=== PATIENT | female | born 1970 | race Caucasian/White ===

== ENCOUNTER 2020-12-21 00:11 | Emergency (ER) | payer OTHER, SELFPAY ==
--- NOTE | 2020-12-21 00:23 | ED_ITS ---
HPI - Psych General Chief Complaint: Psychiatric Symptoms <DICK Crook - Last Filed: 12/21/20 01:49> Stated Complaint: SI/SEC 12 <DICK Crook - Last Filed: 12/21/20 01:49> Time Seen by Provider: 12/21/20 00:22 <DICK Crook - Last Filed: 12/21/20 01:49> Source: patient <DICK Crook Last Filed: 12/21/20 01:49> Mode of arrival: EMS <DICK Crook Last Filed: 12/21/20 01:49> Limitations: no limitations <DICK Crook Last Filed: 12/21/20 01:49> History of Present Illness HPI Narrative: 50-year-old female past medical history significant for anxiety, depression, 6 polysubstance use, IV drug use, hepatitis-C, alcohol dependency presents to the emergency department with EMS, and police on a Section 12 for increasing depression, suicidal ideation, and alcohol abuse. Patient states she has been having problems at home, she is taking care of a sick family member who is currently dying. She also states that she is very upset seeing that her son has been frequently drinking and she is afraid he is going to sock turner to be an alcoholic just like her. She states she has been struggling for the past 5 months, ever since she got taken off of the Adderall. She states she got taken off because she admitted to her prescriber that she was abusing it. Since stopping Adderall she has been using heroin, and cocaine. She also states that she has been drinking daily, 1 pt of vodka per day. She states she would like to get help, she wants to stop using drugs, and she wants to stop drinking. She lives at home with her sick family member, and 2 sons. She has an outpatient therapist and psychiatrist. She denies visual, tactile and auditory hallucinations. She has been in detox and has had multiple psych admissions. She denies pain. Denies chest pain, shortness of breath, fevers, chills, nausea, vomiting, abdominal pain, weakness, headache, dizziness. <DICK Crook Last Filed: 12/21/20 01:49> MD complaint: suicidal ideation, feels depressed, anxiety, substance abuse and alcohol abuse <DICK Crook Last Filed: 12/21/20 01:49> Onset (ago): month(s) (5) <DICK Crook Last Filed: 12/21/20 01:49> Duration: constant <DICK Crook Last Filed: 12/21/20 01:49> History of same: Yes <DICK Crook - Last Filed: 12/21/20 01:49> Relieving factors: none <DICK Crook Last Filed: 12/21/20 01:49> Exacerbating factors: none <DICK Crook Last Filed: 12/21/20 01:49> Context: recent alcohol abuse, recent drug abuse and significant life stressor (family member is very sick and dying, 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 ) <DICK Escamilla - Last Filed: 12/21/20 01:49> Associated psychiatric symptoms: depression, suicidal ideation and homicidal ideation <DICK Crook Last Filed: 12/21/20 01:49> Associated symptoms: denies other symptoms <DICK Crook - Last Filed: 12/21/20 01:49> Treatments prior to arrival: none <DICK Crook Last Filed: 12/21/20 01:49> If self harm: admits thoughts of self harm and has plan (cut wrist, bleed out ) <DICK Crook Last Filed: 12/21/20 01:49> Related Data Home Medications: Home Medications Medication Instructions Recorded Confirmed amlodipine 5 mg tablet 5 mg PO DAILY 08/21/20 12/21/20 clonazepam 1 mg tablet 100f2 mg PO TID 08/21/20 12/21/20 ergocalciferol (vitamin D2) 1,250 1,250 mcg PO QWEEK 08/21/20 12/21/20 mcg (50,000 unit) capsule lamotrigine 150 mg tablet 150 mg PO BID 08/21/20 12/21/20 levalbuterol tartrate 45 45 mcg INHALATION DAILY 08/21/20 12/21/20 mcg/actuation aerosol inhaler multivitamin 1 tab PO DAILY 08/21/20 12/21/20 aripiprazole 5 mg tablet 1 tab PO DAILY 12/21/20 12/21/20 venlafaxine 75 mg capsule,extended 1 tab PO BID 12/21/20 12/21/20 release 24 hr <DICK Crook - Last Filed: 12/21/20 01:49> Allergies/Adverse Reactions: Allergies Allergy/AdvReac Type Severity Reaction Status Date / Time No Known Allergies Allergy Unverified 08/21/20 16:06 <DICK Crook Last Filed: 12/21/20 01:49> Review of Systems Review of Systems: Constitutional : No Fever, No Chills ENT/Mouth : No Ear Pain, No Nasal Congestion, No sore throat Eyes: No Eye Pain, No Swelling, No Redness Cardiovascular : No Chest Pain, No SOB Respiratory : No Cough, No Sputum, No Dyspnea Gastrointestinal : No Nausea, No Vomiting, No Diarrhea, No Hematochezia, No Melena Genitourinary : No Dysuria, No Urinary Frequency, No Hematuria Musculoskeletal : No Myalgias Skin : No Skin Lesions, No rash Neuro : No Weakness, No Numbness, No Paresthesias, No Dizziness, No Headache Psych : positive Anxiety, positive Depression, positive SI/HI All other systems reviewed and are negative <DICK Crook Last Filed: 12/21/20 01:49> [facility] Past Medical History Attestation statement: The following information was validated with the patient. <DICK Stauffer - Last Filed: 12/21/20 01:49> Source: old records reviewed and nursing notes reviewed <DICK Crook Last Filed: 12/21/20 01:49> Social History Social History: Social History Alcohol intake: current Alcohol intake frequency: 3 or more drinks per day Alcohol type: hard liquor Patient Tobacco Use Status: Current everyday Tobacco user Use of substances other than those prescribed or required for medical reasons: Yes Substance Use Type: Crack/Cocaine and Heroin Substance Use Frequency: Recent Binge Substance Use Frequency Other:: one month ago heroin and cocaine used Last Used Substance: Days (ago) Any prior treatment program specific to substance use: Yes Advance Directives: No Advance Directives Information Provided: No Patient : No <DICK Crook - Last Filed: 12/21/20 01:49> Physical Exam Vital Signs: Vital Signs: Last Vital Signs Temp 97.9 F 12/21/20 00:28 Pulse 105 H 12/21/20 07:02 Resp 18 12/21/20 07:02 BP 154/95 H 12/21/20 07:02 Pulse Ox 96 12/21/20 00:28 Body Mass Index 33.6 <DICK Crook - Last Filed: 12/21/20 01:49> Vital Signs: Last Vital Signs Temp 97.9 F 12/21/20 00:28 Pulse 105 H 12/21/20 07:02 Resp 18 12/21/20 07:02 BP 154/95 H 12/21/20 07:02 Pulse Ox 96 12/21/20 00:28 Body Mass Index 33.6 <DICK Estevez - Last Filed: 12/21/20 09:19> Appearance: Alert.? Oriented X3.? No acute distress.? Eyes: Pupils equal, round and reactive to light.? ENT: Pharynx normal.? Neck: Normal inspection.? Neck supple.? CVS: Normal heart rate and rhythm.? Pulses normal.? Respiratory: No respiratory distress.? Breath sounds normal.? Abdomen: Soft and nontender.? Skin: Skin warm and dry.? Normal skin color.? Normal skin turgor.? Extremities: No lower extremity edema.? Neuro: Oriented X 3.? No motor deficit.? No sensory deficit. CN 2-12 intact <DICK Crook - Last Filed: 12/21/20 01:49> Course Reevaluation(s) Reevaluation #1: Labs show no acute infection, no anemia transaminases are noted to be elevated, likely secondary to alcohol use disorder, no other acute electrolyte abnormalities. Urine free of infection, urine negative. U tox positive for fentanyl. Ethanol 192. Patient is COVID negative. At this time patient will be placed in physician observation (0142) to allow more time to be evaluated by N she is currently on a Section 12 for suicidal ideation with plan to cut wrist. Patient is calm and cooperative. At this time patients vital signs are stable. Lungs are clear to auscultation,RRR, abdomen soft nontender nondistended. No focal neuro deficits. Pending [facility] evaluation Sign-out will be given to Dr. Mary. 25 mg of librium will be given to prevent seizing <DICK Crook - Last Filed: 12/21/20 01:49> Time: 01:42 <DICK Crook - Last Filed: 12/21/20 01:49> Reevaluation #2: Physician observation completed. Patient is slightly tachycardic this morning to 105, no complaints overnight. Was evaluated by N this morning, they recommended detox however patient reports she has an appointment with her doctors on Tuesday which she does not want to miss. States she would like to go to detox after her appointments. Patient is safe for discharge at this time. Labs reviewed, chronic transaminitis noted. Denies SI/HI <DICK Estevez - Last Filed: 12/21/20 09:19> Time: 09:16 <DICK Estevez - Last Filed: 12/21/20 09:19> MDM - Psych MDM Narrative Medical decision making narrative: 0022 50-year-old female past medical history significant for anxiety, depression, 6 polysubstance use, IVDA, hepatitis-C, alcohol dependency w/ hx of alcohol withdraw seizures presents to the emergency department with EMS, and police on a Section 12 for increasing depression, suicidal ideation with plan to cut wrist, and alcohol abuse X5 months worse this week. Patient admits to heroin use, cocaine use. She drinks 1 pt of vodka per day. She would like to detox from alcohol, and drugs. She states she would like to stay, and really needs help. Patient denies pain or discomfort. Upon physical examination patient is tearful, alert and oriented x3 appropriate, able to follow commands. S1 and S2 appreciated free murmurs. Lungs are clear to auscultation. Abdomen soft nontender nondistended. No focal neuro deficits. Normal strength to upper and lower extremities. Steady gait no ataxia. Plan at this time is to obtain basic labs, drug abuse, COVID, ethanol, magnesium, urine , urine clean catch. <DICK Crook - Last Filed: 12/21/20 01:49> Lab Data Result diagrams: : 12/21/20 00:46 12/21/20 00:46 <DICK Crook - Last Filed: 12/21/20 01:49> Labs: Lab Results 12/21/20 12/21/20 12/21/20 Range/Units 00:38 00:46 00:46 WBC 8.8 (4.8-10.8) X10*3/uL RBC 4.51 (4.20-5.50) X10*6/uL Hgb 15.5 (12.0-16.0) g/dl Hct 44.9 (37.0-47.0) % MCV 99.6 H (80.0-98.0) fL MCH 34.4 H (27.0-33.0) pg MCHC 34.5 (31.0-35.0) g/dl RDW 14.1 (11.0-16.0) % Plt Count 318 (160-400) X10*3/uL MPV 10.0 (9.4-12.3) fL Immature Gran % (Auto) 0.2 (0.0-0.4) % Neut % (Auto) 63.0 (45-73) % Lymph % (Auto) 27.4 (20-40) % [place] % (Auto) 7.3 (2-11) % Eos % (Auto) 1.5 (0-4) % Baso % (Auto) 0.6 (0-2) % Lymph # (Auto) 2.4 (1.2-4.9) X10*3/uL [place] # (Auto) 0.6 (0.1-1.2) X10*3/uL Eos # (Auto) 0.1 (0.0-0.4) X10*3/uL Baso # (Auto) 0.1 (0.0-0.2) X10*3/uL Abs Immat Gran (auto) 0.02 (0.00-0.03) X10*3/uL Absolute Neuts (auto) 5.5 (2.0-8.3) x10*3/uL Absolute Nucleated RBC 0.000 (0.0-0.012) X10*3/uL Nucleated RBC % (auto) 0.0 (0.0-0.2) /100WBC Sodium 146 H (135-145) mmol/L Potassium 4.0 (3.3-5.1) mmol/L Chloride 109 H (96-108) mmol/L Carbon Dioxide 22 (22-29) mmol/L Anion Gap 19 (12-20) BUN 6 L (9-16) mg/dL Creatinine 0.86 (0.5-1.4) mg/dL Estim Creat Clear Calc 61.8 Estimated GFR > 60 Random Glucose 112 (60-115) mg/dL Calcium 10.0 (8.4-10.2) mg/dL Magnesium 2.1 (1.6-2.6) mg/dL Total Bilirubin 0.2 (0.0-1.0) mg/dL AST 48 H (5-31) U/L ALT 84 H (0-31) U/L Alkaline Phosphatase 143 H (39-117) U/L Total Protein 8.4 H (6.5-8.0) g/dL Albumin 4.8 (3.5-5.0) g/dL Urine Color Urine Appearance Urine pH (5.0-8.0) Ur Specific [place] (1.005-1.025) Urine Protein (NEG-TRACE) MG/DL Urine Glucose (UA) (NEG) MG/DL Urine Ketones (NEG) MG/DL Urine Blood (NEG) Urine Nitrite (NEG) Ur Leukocyte Esterase (NEG) Urine RBC (0) /HPF Urine WBC (0-4) /HPF Ur Squamous Epith Cells /LPF Urine Bacteria /LPF Urine Test (NEGATIVE) Urine Opiates Screen (Not Detect) Urine Fentanyl Screen (Not Detect) Ur Barbiturates Screen (Not Detect) Ur Phencyclidine Scrn (Not Detect) Ur Amphetamines Screen (Not Detect) U Benzodiazepines Scrn (Not Detect) Urine Cocaine Screen (Not Detect) U Marijuana (THC) Screen (Not Detect) Ethyl Alcohol mg/dL COVID-19 (KADEN) Negative (Negative) COVID-19 Clin Com See Note 12/21/20 12/21/20 12/21/20 Range/Units 00:46 00:46 00:46 WBC (4.8-10.8) X10*3/uL RBC (4.20-5.50) X10*6/uL Hgb (12.0-16.0) g/dl Hct (37.0-47.0) % MCV (80.0-98.0) fL MCH (27.0-33.0) pg MCHC (31.0-35.0) g/dl RDW (11.0-16.0) % Plt Count (160-400) X10*3/uL MPV (9.4-12.3) fL Immature Gran % (Auto) (0.0-0.4) % Neut % (Auto) (45-73) % Lymph % (Auto) (20-40) % [place] % (Auto) (2-11) % Eos % (Auto) (0-4) % Baso % (Auto) (0-2) % Lymph # (Auto) (1.2-4.9) X10*3/uL [place] # (Auto) (0.1-1.2) X10*3/uL Eos # (Auto) (0.0-0.4) X10*3/uL Baso # (Auto) (0.0-0.2) X10*3/uL Abs Immat Gran (auto) (0.00-0.03) X10*3/uL Absolute Neuts (auto) (2.0-8.3) x10*3/uL Absolute Nucleated RBC (0.0-0.012) X10*3/uL Nucleated RBC % (auto) (0.0-0.2) /100WBC Sodium (135-145) mmol/L Potassium (3.3-5.1) mmol/L Chloride (96-108) mmol/L Carbon Dioxide (22-29) mmol/L Anion Gap (12-20) BUN (9-16) mg/dL Creatinine (0.5-1.4) mg/dL Estim Creat Clear Calc Estimated GFR Random Glucose (60-115) mg/dL Calcium (8.4-10.2) mg/dL Magnesium (1.6-2.6) mg/dL Total Bilirubin (0.0-1.0) mg/dL AST (5-31) U/L ALT (0-31) U/L Alkaline Phosphatase (39-117) U/L Total Protein (6.5-8.0) g/dL Albumin (3.5-5.0) g/dL Urine Color YELLOW Urine Appearance CLEAR Urine pH 6.0 (5.0-8.0) Ur Specific [place] <= 1.005 (1.005-1.025) Urine Protein NEG (NEG-TRACE) MG/DL Urine Glucose (UA) NEG (NEG) MG/DL Urine Ketones NEG (NEG) MG/DL Urine Blood NEG (NEG) Urine Nitrite NEG (NEG) Ur Leukocyte Esterase NEG (NEG) Urine RBC 0-2 (0) /HPF Urine WBC 0-2 (0-4) /HPF Ur Squamous Epith Cells TRACE /LPF Urine Bacteria TRACE /LPF Urine Test NEGATIVE (NEGATIVE) Urine Opiates Screen (Not Detect) Urine Fentanyl Screen (Not Detect) Ur Barbiturates Screen (Not Detect) Ur Phencyclidine Scrn (Not Detect) Ur Amphetamines Screen (Not Detect) U Benzodiazepines Scrn (Not Detect) Urine Cocaine Screen (Not Detect) U Marijuana (THC) Screen (Not Detect) Ethyl Alcohol 192 mg/dL COVID-19 (KADEN) (Negative) COVID-19 Clin Com 12/21/20 Range/Units 00:47 WBC (4.8-10.8) X10*3/uL RBC (4.20-5.50) X10*6/uL Hgb (12.0-16.0) g/dl Hct (37.0-47.0) % MCV (80.0-98.0) fL MCH (27.0-33.0) pg MCHC (31.0-35.0) g/dl RDW (11.0-16.0) % Plt Count (160-400) X10*3/uL MPV (9.4-12.3) fL Immature Gran % (Auto) (0.0-0.4) % Neut % (Auto) (45-73) % Lymph % (Auto) (20-40) % [place] % (Auto) (2-11) % Eos % (Auto) (0-4) % Baso % (Auto) (0-2) % Lymph # (Auto) (1.2-4.9) X10*3/uL [place] # (Auto) (0.1-1.2) X10*3/uL Eos # (Auto) (0.0-0.4) X10*3/uL Baso # (Auto) (0.0-0.2) X10*3/uL Abs Immat Gran (auto) (0.00-0.03) X10*3/uL Absolute Neuts (auto) (2.0-8.3) x10*3/uL Absolute Nucleated RBC (0.0-0.012) X10*3/uL Nucleated RBC % (auto) (0.0-0.2) /100WBC Sodium (135-145) mmol/L Potassium (3.3-5.1) mmol/L Chloride (96-108) mmol/L Carbon Dioxide (22-29) mmol/L Anion Gap (12-20) BUN (9-16) mg/dL Creatinine (0.5-1.4) mg/dL Estim Creat Clear Calc Estimated GFR Random Glucose (60-115) mg/dL Calcium (8.4-10.2) mg/dL Magnesium (1.6-2.6) mg/dL Total Bilirubin (0.0-1.0) mg/dL AST (5-31) U/L ALT (0-31) U/L Alkaline Phosphatase (39-117) U/L Total Protein (6.5-8.0) g/dL Albumin (3.5-5.0) g/dL Urine Color Urine Appearance Urine pH (5.0-8.0) Ur Specific [place] (1.005-1.025) Urine Protein (NEG-TRACE) MG/DL Urine Glucose (UA) (NEG) MG/DL Urine Ketones (NEG) MG/DL Urine Blood (NEG) Urine Nitrite (NEG) Ur Leukocyte Esterase (NEG) Urine RBC (0) /HPF Urine WBC (0-4) /HPF Ur Squamous Epith Cells /LPF Urine Bacteria /LPF Urine Test (NEGATIVE) Urine Opiates Screen Not Detected (Not Detect) Urine Fentanyl Screen POSITIVE H (Not Detect) Ur Barbiturates Screen Not Detected (Not Detect) Ur Phencyclidine Scrn Not Detected (Not Detect) Ur Amphetamines Screen Not Detected (Not Detect) U Benzodiazepines Scrn Not Detected (Not Detect) Urine Cocaine Screen Not Detected (Not Detect) U Marijuana (THC) Screen Not Detected (Not Detect) Ethyl Alcohol mg/dL COVID-19 (KADEN) (Negative) COVID-19 Clin Com <DICK Crook - Last Filed: 12/21/20 01:49> Lab Results 12/21/20 12/21/20 12/21/20 Range/Units 00:38 00:46 00:46 WBC 8.8 (4.8-10.8) X10*3/uL RBC 4.51 (4.20-5.50) X10*6/uL Hgb 15.5 (12.0-16.0) g/dl Hct 44.9 (37.0-47.0) % MCV 99.6 H (80.0-98.0) fL MCH 34.4 H (27.0-33.0) pg MCHC 34.5 (31.0-35.0) g/dl RDW 14.1 (11.0-16.0) % Plt Count 318 (160-400) X10*3/uL MPV 10.0 (9.4-12.3) fL Immature Gran % (Auto) 0.2 (0.0-0.4) % Neut % (Auto) 63.0 (45-73) % Lymph % (Auto) 27.4 (20-40) % [place] % (Auto) 7.3 (2-11) % Eos % (Auto) 1.5 (0-4) % Baso % (Auto) 0.6 (0-2) % Lymph # (Auto) 2.4 (1.2-4.9) X10*3/uL [place] # (Auto) 0.6 (0.1-1.2) X10*3/uL Eos # (Auto) 0.1 (0.0-0.4) X10*3/uL Baso # (Auto) 0.1 (0.0-0.2) X10*3/uL Abs Immat Gran (auto) 0.02 (0.00-0.03) X10*3/uL Absolute Neuts (auto) 5.5 (2.0-8.3) x10*3/uL Absolute Nucleated RBC 0.000 (0.0-0.012) X10*3/uL Nucleated RBC % (auto) 0.0 (0.0-0.2) /100WBC Sodium 146 H (135-145) mmol/L Potassium 4.0 (3.3-5.1) mmol/L Chloride 109 H (96-108) mmol/L Carbon Dioxide 22 (22-29) mmol/L Anion Gap 19 (12-20) BUN 6 L (9-16) mg/dL Creatinine 0.86 (0.5-1.4) mg/dL Estim Creat Clear Calc 61.8 Estimated GFR > 60 Random Glucose 112 (60-115) mg/dL Calcium 10.0 (8.4-10.2) mg/dL Magnesium 2.1 (1.6-2.6) mg/dL Total Bilirubin 0.2 (0.0-1.0) mg/dL AST 48 H (5-31) U/L ALT 84 H (0-31) U/L Alkaline Phosphatase 143 H (39-117) U/L Total Protein 8.4 H (6.5-8.0) g/dL Albumin 4.8 (3.5-5.0) g/dL Urine Color Urine Appearance Urine pH (5.0-8.0) Ur Specific [place] (1.005-1.025) Urine Protein (NEG-TRACE) MG/DL Urine Glucose (UA) (NEG) MG/DL Urine Ketones (NEG) MG/DL Urine Blood (NEG) Urine Nitrite (NEG) Ur Leukocyte Esterase (NEG) Urine RBC (0) /HPF Urine WBC (0-4) /HPF Ur Squamous Epith Cells /LPF Urine Bacteria /LPF Urine Test (NEGATIVE) Urine Opiates Screen (Not Detect) Urine Fentanyl Screen (Not Detect) Ur Barbiturates Screen (Not Detect) Ur Phencyclidine Scrn (Not Detect) Ur Amphetamines Screen (Not Detect) U Benzodiazepines Scrn (Not Detect) Urine Cocaine Screen (Not Detect) U Marijuana (THC) Screen (Not Detect) Ethyl Alcohol mg/dL COVID-19 ([facility]ADEN) Negative (Negative) COVID-19 Clin Com See Note 12/21/20 12/21/20 12/21/20 Range/Units 00:46 00:46 00:46 WBC (4.8-10.8) X10*3/uL RBC (4.20-5.50) X10*6/uL Hgb (12.0-16.0) g/dl Hct (37.0-47.0) % MCV (80.0-98.0) fL MCH (27.0-33.0) pg MCHC (31.0-35.0) g/dl RDW (11.0-16.0) % Plt Count (160-400) X10*3/uL MPV (9.4-12.3) fL Immature Gran % (Auto) (0.0-0.4) % Neut % (Auto) (45-73) % Lymph % (Auto) (20-40) % [place] % (Auto) (2-11) % Eos % (Auto) (0-4) % Baso % (Auto) (0-2) % Lymph # (Auto) (1.2-4.9) X10*3/uL [place] # (Auto) (0.1-1.2) X10*3/uL Eos # (Auto) (0.0-0.4) X10*3/uL Baso # (Auto) (0.0-0.2) X10*3/uL Abs Immat Gran (auto) (0.00-0.03) X10*3/uL Absolute Neuts (auto) (2.0-8.3) x10*3/uL Absolute Nucleated RBC (0.0-0.012) X10*3/uL Nucleated RBC % (auto) (0.0-0.2) /100WBC Sodium (135-145) mmol/L Potassium (3.3-5.1) mmol/L Chloride (96-108) mmol/L Carbon Dioxide (22-29) mmol/L Anion Gap (12-20) BUN (9-16) mg/dL Creatinine (0.5-1.4) mg/dL Estim Creat Clear Calc Estimated GFR Random Glucose (60-115) mg/dL Calcium (8.4-10.2) mg/dL Magnesium (1.6-2.6) mg/dL Total Bilirubin (0.0-1.0) mg/dL AST (5-31) U/L ALT (0-31) U/L Alkaline Phosphatase (39-117) U/L Total Protein (6.5-8.0) g/dL Albumin (3.5-5.0) g/dL Urine Color YELLOW Urine Appearance CLEAR Urine pH 6.0 (5.0-8.0) Ur Specific [place] <= 1.005 (1.005-1.025) Urine Protein NEG (NEG-TRACE) MG/DL Urine Glucose (UA) NEG (NEG) MG/DL Urine Ketones NEG (NEG) MG/DL Urine Blood NEG (NEG) Urine Nitrite NEG (NEG) Ur Leukocyte Esterase NEG (NEG) Urine RBC 0-2 (0) /HPF Urine WBC 0-2 (0-4) /HPF Ur Squamous Epith Cells TRACE /LPF Urine Bacteria TRACE /LPF Urine Test NEGATIVE (NEGATIVE) Urine Opiates Screen (Not Detect) Urine Fentanyl Screen (Not Detect) Ur Barbiturates Screen (Not Detect) Ur Phencyclidine Scrn (Not Detect) Ur Amphetamines Screen (Not Detect) U Benzodiazepines Scrn (Not Detect) Urine Cocaine Screen (Not Detect) U Marijuana (THC) Screen (Not Detect) Ethyl Alcohol 192 mg/dL COVID-19 ([facility]ADEN) (Negative) COVID-19 Clin Com 12/21/20 Range/Units 00:47 WBC (4.8-10.8) X10*3/uL RBC (4.20-5.50) X10*6/uL Hgb (12.0-16.0) g/dl Hct (37.0-47.0) % MCV (80.0-98.0) fL MCH (27.0-33.0) pg MCHC (31.0-35.0) g/dl RDW (11.0-16.0) % Plt Count (160-400) X10*3/uL MPV (9.4-12.3) fL Immature Gran % (Auto) (0.0-0.4) % Neut % (Auto) (45-73) % Lymph % (Auto) (20-40) % [place] % (Auto) (2-11) % Eos % (Auto) (0-4) % Baso % (Auto) (0-2) % Lymph # (Auto) (1.2-4.9) X10*3/uL [place] # (Auto) (0.1-1.2) X10*3/uL Eos # (Auto) (0.0-0.4) X10*3/uL Baso # (Auto) (0.0-0.2) X10*3/uL Abs Immat Gran (auto) (0.00-0.03) X10*3/uL Absolute Neuts (auto) (2.0-8.3) x10*3/uL Absolute Nucleated RBC (0.0-0.012) X10*3/uL Nucleated RBC % (auto) (0.0-0.2) /100WBC Sodium (135-145) mmol/L Potassium (3.3-5.1) mmol/L Chloride (96-108) mmol/L Carbon Dioxide (22-29) mmol/L Anion Gap (12-20) BUN (9-16) mg/dL Creatinine (0.5-1.4) mg/dL Estim Creat Clear Calc Estimated GFR Random Glucose (60-115) mg/dL Calcium (8.4-10.2) mg/dL Magnesium (1.6-2.6) mg/dL Total Bilirubin (0.0-1.0) mg/dL AST (5-31) U/L ALT (0-31) U/L Alkaline Phosphatase (39-117) U/L Total Protein (6.5-8.0) g/dL Albumin (3.5-5.0) g/dL Urine Color Urine Appearance Urine pH (5.0-8.0) Ur Specific [place] (1.005-1.025) Urine Protein (NEG-TRACE) MG/DL Urine Glucose (UA) (NEG) MG/DL Urine Ketones (NEG) MG/DL Urine Blood (NEG) Urine Nitrite (NEG) Ur Leukocyte Esterase (NEG) Urine RBC (0) /HPF Urine WBC (0-4) /HPF Ur Squamous Epith Cells /LPF Urine Bacteria /LPF Urine Test (NEGATIVE) Urine Opiates Screen Not Detected (Not Detect) Urine Fentanyl Screen POSITIVE H (Not Detect) Ur Barbiturates Screen Not Detected (Not Detect) Ur Phencyclidine Scrn Not Detected (Not Detect) Ur Amphetamines Screen Not Detected (Not Detect) U Benzodiazepines Scrn Not Detected (Not Detect) Urine Cocaine Screen Not Detected (Not Detect) U Marijuana (THC) Screen Not Detected (Not Detect) Ethyl Alcohol mg/dL COVID-19 ([facility]) (Negative) COVID-19 Clin Com <DICK Estevez - Last Filed: 12/21/20 09:19> Discharge Plan Discharge Clinical Impression: Depression, Suicidal ideation, Acute anxiety, Polysubstance abuse, Alcohol abuse <DICK Crook - Last Filed: 12/21/20 01:49> Patient Disposition: Still a Patient <DICK Crook - Last Filed: 12/21/20 01:49> Prescriptions: No Action venlafaxine 75 mg capsule,extended release 24hr 1 tab PO BID RF: 0 aripiprazole 5 mg tablet 1 tab PO DAILY RF: 0 ergocalciferol (vitamin D2) 1,250 mcg (50,000 unit) capsule 1,250 mcg PO QWEEK RF: 0 clonazepam 1 mg tablet 100f2 mg PO TID RF: 0 lamotrigine 150 mg tablet 150 mg PO BID RF: 0 levalbuterol tartrate 45 mcg/actuation HFA aerosol inhaler 45 mcg inhalation DAILY RF: 0 amlodipine 5 mg tablet 5 mg PO DAILY RF: 0 multivitamin Tablet 1 tab PO DAILY RF: 0 <DICK Crook Last Filed: 12/21/20 01:49>
[2020-12-21 00:28] VITALS: BP 130/80; BP 140/93; PULSE 90; PULSE 99; RESP 18; TEMP 36.6; O2SAT 100; O2SAT 96; BMI 33.6
[2020-12-21 00:54] LABS: MANUAL DIFF FLAG NO
[2020-12-21 01:00] LABS: Basophils Absolute Auto 0.1 X10*3/uL (0.0-0.2); Basophils Percent Auto 0.6 % (0-2); Eosinophils Absolute Auto 0.1 X10*3/uL (0.0-0.4); Eosinophils Percent Auto 1.5 % (0-4); Hematocrit 44.9 % (37.0-47.0); Hemoglobin 15.5 g/dl (12.0-16.0); Imm Gran Abs Auto 0.02 X10*3/uL (0.00-0.03); Imm Gran Pct Auto 0.2 % (0.0-0.4); Lymphocytes Absolute Auto 2.4 X10*3/uL (1.2-4.9); Lymphocytes Percent Auto 27.4 % (20-40); Mean Corpuscular HGB Conc 34.5 g/dl (31.0-35.0); Mean Corpuscular Hemoglobin 34.4 pg (27.0-33.0); Mean Corpuscular Volume 99.6 fL (80.0-98.0); Monocytes Absolute Auto 0.6 X10*3/uL (0.1-1.2); Monocytes Percent Auto 7.3 % (2-11); Neutrophils Absolute Auto 5.5 x10*3/uL (2.0-8.3); Platelet Count 318 X10*3/uL (160-400); Red Blood Count 4.51 X10*6/uL (4.20-5.50); Red Cell Distribution Width 14.1 % (11.0-16.0); White Blood Count 8.8 X10*3/uL (4.8-10.8)
[2020-12-21 01:09] LABS: Amphetamine Screen Urine Not Detected (Not Detect); Barbiturates, Urine Not Detected (Not Detect); Benzodiazepines Screen Urine Not Detected (Not Detect); Cannabinoid Screen Urine Not Detected (Not Detect); Cocaine Screen Urine Not Detected (Not Detect); Fentanyl, urine POSITIVE (Not Detect); Opiate Screen Urine Not Detected (Not Detect); Phencyclidine Screen Urine Not Detected (Not Detect)
[2020-12-21 01:13] LABS: COVID-19 Test Negative (Negative); IDNOW Serial# 9DD0AD1C
[2020-12-21 01:30] LABS: Ethanol 192 mg/dL
[2020-12-21 01:32] LABS: Alanine Aminotransferase 84 U/L (0-31); Albumin Level 4.8 g/dL (3.5-5.0); Alkaline Phosphatase 143 U/L (39-117); Anion Gap 19 (12-20); Aspartate Amino Transferase 48 U/L (5-31); Bilirubin Total 0.2 mg/dL (0.0-1.0); Blood Urea Nitrogen 6 mg/dL (9-16); Carbon Dioxide 22 mmol/L (22-29); Chloride 109 mmol/L (96-108); Creatinine Clr Calc Pharmacy 61.8; Estimated Glomerular Filt Rate > 60; Glucose Random 112 mg/dL (60-115); Magnesium 2.1 mg/dL (1.6-2.6); Sodium 146 mmol/L (135-145); Total Protein 8.4 g/dL (6.5-8.0)
[2020-12-21 01:33] LABS: Appearance Urine CLEAR; Color Urine YELLOW; Glucose Urine UA NEG (NEG); Leukocyte Esterase Urine NEG (NEG); Nitrite Urine NEG (NEG); Specific Gravity - Urine <= 1.005 (1.005-1.025); Urine Blood NEG (NEG); Urine Ketones NEG (NEG); Urine Protein NEG (NEG-TRACE)
[2020-12-21 01:36] LABS: UPreg QC Valid YES; Urine Pregnancy NEGATIVE (NEGATIVE)
[2020-12-21 02:16] LABS: Bacteria Urine TRACE /LPF; RBC Urine 0-2 /HPF (0); Squamous Epithelial Cell Urine TRACE /LPF; WBC Urine 0-2 /HPF (0-4)
[2020-12-21] MEDS: chlordiazePOXIDE HCl 5 MG CAPSULE 25 MG PO (03:41)
[2020-12-21 07:02] VITALS: BP 154/95; PULSE 105; RESP 18
--- NOTE | 2020-12-21 07:42 | PC.NURSE ---
report taken from [facility] pt sitting in [facility], some reported anxiety. assessed for ciwa, provider aware. vss. appears to have some light tremors, able to rest and feel comfortable watching tv, per pt. [facility]ctm.
--- NOTE | 2020-12-21 09:08 | PHA.MEDREC ---
Pharmacy Consult ? Medication Reconciliation Pharmacy has completed the medication reconciliation.
== END 2020-12-21 09:29 | disposition home or self-care (01) ==
PROVIDERS: Physician Assistant; Emergency Provider Internal Medicine
DX: F32.A Depression, unspecified (principal); R45.851 Suicidal ideations; F41.9 Anxiety disorder, unspecified; F19.10 Other psychoactive substance abuse, uncomplicated; F10.20 Alcohol dependence, uncomplicated; Z79.899 Other long term (current) drug therapy; Z20.822 Contact with and (suspected) exposure to COVID-19
CPT/HCPCS: 36415; 80053; 80307; 81001; 81025; 82077; 83735; 85025; 87635; 99284

== ENCOUNTER 2021-10-10 19:17 | Emergency (ER) | payer OTHER, SELFPAY ==
[2021-10-10 20:40] VITALS: BP 124/90; PULSE 90; RESP 20; TEMP 36.6; O2SAT 96; BMI 32.9
[2021-10-10 20:59] LABS: COVID-19 Test Positive (Negative)
== END 2021-10-10 21:12 | disposition left against medical advice (07) ==
PROVIDERS: Emergency Provider Emergency Medicine; PCP Internal Medicine
DX: U07.1 COVID-19 (principal)
CPT/HCPCS: 87635; 99281; 99283

== ENCOUNTER → 2022-07-16 14:45 | Outpatient (BNVA) | payer OTHER, SELFPAY | PROVIDERS: PCP Internal Medicine; Visit Provider Physician Assistant ==

== ENCOUNTER → 2023-03-21 12:45 | Outpatient (BNVA) | payer OTHER, SELFPAY | PROVIDERS: PCP Internal Medicine; Visit Provider Surgery ==

== ENCOUNTER 2023-04-11 08:38 | Outpatient (AMB) | payer OTHER, SELFPAY ==
--- NOTE | 2023-04-11 11:36 | A.OFFVIS_ITS ---
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 Allergies No Known Allergies Allergy (Verified 04/11/23 11:38) Medication List - Last Reconciled 04/11/23 by José Miguel Guaman MD albuterol sulfate 90 mcg/actuation (ProAir HFA) 2 puffs inhalation Q6H PRN atorvastatin 20 mg PO DAILY cholecalciferol (vitamin D3) 25 mcg PO DAILY clonazepam 1 mg PO TID fluticasone propionate 50 mcg/actuation (Flonase Allergy Relief) 2 sprays intranasal DAILY folic acid 1 mg PO DAILY furosemide 20 mg PO DAILY lamotrigine 200 mg PO DAILY loratadine (Claritin) 10 mg PO DAILY nicotine 1 patch topical DAILY venlafaxine ER (Effexor XR) 150 mg PO DAILY vitamin B complex caps PO DAILY HPI 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 HPI Details Start time: 10.40am, End time: 11.40am ?I spent 50 minutes speaking with the patient on the phone plus an additional 10 minutes reviewing and updating records for a total of 60 minutes HPI Comments History of Present Illness Details Previous weight loss: self diets Wakes up: 8am, Sleeps: 12am Breakfast: 8.30am x3-4/wk (cereal, banana) Lunch: skips Dinner: 9pm (pasta, meat) Snacks: 3-4 snacks between breakfast and dinner (candy, popcorn), one after dinner Exercise: has a home stationary bike Fluids: Coffee: 6 cups per day with cream and sugar, tea/soda/juice/ETOH: none PFSH Medical History (Updated 04/11/23 @ 11:43 by José Miguel Guaman MD) ADHD PTSD (post-traumatic stress disorder) Prediabetes Hyperlipidemia Morbid obesity Surgical History (Updated 07/16/22 @ 15:17 by SIMBA Pike) Hx of tubal ligation History of ear surgery Family History (Updated 07/16/22 @ 15:18 by SIMBA Pike) Mother Hypertension Diabetes High cholesterol Father No problems noted. Brother Colon cancer Hypertension High cholesterol Diabetes Son No problems noted. Son No problems noted. Social History (Updated 07/16/22 @ 15:17 by SIMBA Pike) Alcohol intake: former Patient Tobacco Use Status: Current everyday Tobacco user Cigarette Packs Per Day: 1 Substance Use Type: Crack/Cocaine and Heroin Assessment & Plan Assessment & Plan (1) Morbid obesity: Code(s): E66.01 - Morbid (severe) obesity due to excess calories Plan: 1.? Plan for lap sleeve gastrectomy. If diaphragmatic or ventral hernias are present at time of surgery, these will be repaired laparoscopically as well. 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 I emphasized the importance of close follow-up, adherence to instructions and good communication. 2. Nutritional counseling. Start with 2 CELEBRATE REBUILD protein (buy at [facility] [employer]) shakes (HALF scoop EACH in 8oz low fat unsweetened almond milk each) at 9am-11am and 12pm-2pm, 1 protein bar (CELEBRATE protein bars, buy at [facility] [employer] [facility]) at 3pm-5pm, dinner at 6pm (8 forks of protein and 8 forks of salad/vegetables), another protein bar after dinner at 8pm-10pm. If hungry, please do another Celebrate shake with HALF scoop in 8oz almond milk at 10pm- 12am. So you do 3 protein shakes, 2 protein bars and one meal per day. Meal to include lean meat (beef, fish, pork, turkey, chicken), or croatian yogurt, or egg whites, or beans with a salad with olive oil and fruits (berries, pears, apples, kiwi). Avoid salt, breads, potatoes, rice, pasta, desserts. 3. Each shake would be drunk slowly, like coffee in a period of 2 hours. 4. Cut each bar in 4 pieces and eat each piece in 30min ?to make each bar last 2 hours. 5. I emphasized the importance of measuring accurately the food portion and measure it when serving the food in plate 6. The meal portions include 8 full-size forks of meat and 8 full-size forks of salad. You always eat the meat portion but you can replace up to 4 forks for salad/vegetables with rice, potatoes or pasta, or a fruit ?if you like. The less you do it the better weight loss will be. 7. One full-size fork is what it can be scooped on the fork without falling aside and not what can be bit with the fork. Use regular forks like those you find in a typical restaurant. 8.? Please send me weight measurements as soon as possible and then once a week. Always include your diet and exercise plan. 9. Start stationary bike at a resistance level of 4.0 Increase level by 1.0 every 3 min to a max level of 10.0. Stay at this level for 3 min and then return to level 4.0 and repeat same steps until 300 calories are burned. Velocity target is 12mph. Goal is to burn 2000 calories per week on exercise 10. The best choice would be to purchase a stationary bike, elliptical or treadmill at home that can track calories. Let me know if you do so I can give you an exercise plan. 11.?Unless you are on menopause, it is important of avoiding and for at least 18 months postoperatively and has been discussed at the infosession. 12. Goal is to lose at least 1.5-2lbs per week 13. Goal to lose 10% of your weight before surgery, which is about 17lbs. Ultimate weight goal:159lbs before surgery 14. Please follow the diet plan exactly without any change. If you don't like something about the plan or you feel hungry you need to communicate with me so I can help you revise the plan. You should not change the plan yourself. Orders: Orders Hemoglobin A1c Today E66.01 - Morbid (severe) obesity due to excess calories, E78.5 - Hyperlipidemia, unspecified, R73.03 - Prediabetes H Pylori Breath Test Today E66.01 - Morbid (severe) obesity due to excess calories, E78.5 - Hyperlipidemia, unspecified, R73.03 - Prediabetes Complete Blood Count Auto Diff Today E66.01 - Morbid (severe) obesity due to excess calories, E78.5 - Hyperlipidemia, unspecified, R73.03 - Prediabetes Lipid Panel Today E66.01 - Morbid (severe) obesity due to excess calories, E78.5 - Hyperlipidemia, unspecified, R73.03 - Prediabetes Comprehensive Met. Panel Today E66.01 - Morbid (severe) obesity due to excess calories, E78.5 - Hyperlipidemia, unspecified, R73.03 - Prediabetes Vitamin B12 and Folate Today E66.01 - Morbid (severe) obesity due to excess calories, E78.5 - Hyperlipidemia, unspecified, R73.03 - Prediabetes Zinc Today E66.01 - Morbid (severe) obesity due to excess calories, E78.5 - Hyperlipidemia, unspecified, R73.03 - Prediabetes TSH reflex Free T4 Today E66.01 - Morbid (severe) obesity due to excess calories, E78.5 - Hyperlipidemia, unspecified, R73.03 - Prediabetes Vitamin D 25-OH Total Today E66.01 - Morbid (severe) obesity due to excess calories, E78.5 - Hyperlipidemia, unspecified, R73.03 - Prediabetes Insulin Today E66.01 - Morbid (severe) obesity due to excess calories, E78.5 - Hyperlipidemia, unspecified, R73.03 - Prediabetes IRON PROFILE Today E66.01 - Morbid (severe) obesity due to excess calories, E78.5 - Hyperlipidemia, unspecified, R73.03 - Prediabetes C Reactive Protein Today E66.01 - Morbid (severe) obesity due to excess calories, E78.5 - Hyperlipidemia, unspecified, R73.03 - Prediabetes Vitamin B1 Today E66.01 - Morbid (severe) obesity due to excess calories, E78.5 - Hyperlipidemia, unspecified, R73.03 - Prediabetes Vitamin A Today E66.01 - Morbid (severe) obesity due to excess calories, E78.5 - Hyperlipidemia, unspecified, R73.03 - Prediabetes Ferritin Today E66.01 - Morbid (severe) obesity due to excess calories, E78.5 - Hyperlipidemia, unspecified, R73.03 - Prediabetes US abdomen comp w elastography Today E66.01 - Morbid (severe) obesity due to excess calories, E78.5 - Hyperlipidemia, unspecified, R73.03 - Prediabetes XR chest 2V Today E66.01 - Morbid (severe) obesity due to excess calories, E78.5 - Hyperlipidemia, unspecified, R73.03 - Prediabetes ECG 12 lead EKG Today E66.01 - Morbid (severe) obesity due to excess calories, E78.5 - Hyperlipidemia, unspecified, R73.03 - Prediabetes FL upper GI w air Today E66.01 - Morbid (severe) obesity due to excess calories, E78.5 - Hyperlipidemia, unspecified, R73.03 - Prediabetes Referrals Behavioral Health Referral E66.01 - Morbid (severe) obesity due to excess calories, E78.5 - Hyperlipidemia, unspecified, R73.03 - Prediabetes Nutrition/Dietitian Referral E66.01 - Morbid (severe) obesity due to excess calories, E78.5 - Hyperlipidemia, unspecified, R73.03 - Prediabetes Telehealth Telehealth Location of provider rendering services: practice address Location of patient: address on file Patient Identification confirmed using: Name, : Yes Telehealth method: voice only Patient verbally consented to treatment: Yes Patient verbally consented to billing insurance company: Yes Patient informed of any privacy concerns related to visit: Yes Minutes spent on Phone/Video with Pt.: 60 Coding Level of Care Code Tele New Pt Level 4 (08940) Diagnoses Morbid obesity E66.01 Time Spent (min) 60
[2023-04-11 11:37] VITALS: BMI 42.4
== END 2023-04-11 11:52 | disposition home or self-care (01) ==
LOC: HO.HBS 08:38
PROVIDERS: PCP Internal Medicine; Visit Provider Surgery
DX: E66.01 Morbid (severe) obesity due to excess calories (principal); Z68.41 Body mass index [BMI] 40.0-44.9, adult
CPT/HCPCS: 99443

== ENCOUNTER → 2023-04-11 08:38 | Outpatient (BNVA) | payer OTHER, SELFPAY | PROVIDERS: PCP Internal Medicine; Visit Provider Surgery ==

== ENCOUNTER 2023-05-13 14:45 | Outpatient (REF) | payer OTHER, SELFPAY ==
--- NOTE | ~2023-05-13 | XR_ITS ---
EXAMINATION: XR HAND, BILATERAL XR KNEE, BILATERAL CLINICAL INFORMATION: Bilateral hand and knee pain. COMPARISON: None available. TECHNIQUE: 3 views of each hand. 3 views of each knee. FINDINGS: RIGHT HAND: Chronic deformity or central erosion of the 4th distal phalanx at the PIP joint which is narrowed. Mild narrowing of the 2nd DIP joint as well as the 3rd and 4th PIP joints. No definite active erosion or suspicious soft tissue calcification. LEFT HAND: Narrowing with central erosions and marginal osteophytes at the 3rd DIP joint suggesting chronic erosive osteoarthritis. Similar although less prominent findings of the 2nd DIP joint. Mild narrowing of the 4th and 5th DIP joints. No definite active erosions. RIGHT KNEE: No joint space narrowing. No joint effusion. No fracture or significant degenerative findings. LEFT KNEE: No joint space narrowing. No joint effusion. No fracture or significant degenerative findings. XR/XR hand RT min 3V IMPRESSION: Right Hand: Arthritic changes as described with possible moderate chronic erosive osteoarthritis of the 4th DIP joint. Left Hand: Arthritic changes as described, [id number] at the 2nd and 3rd DIP joints with probable chronic erosive osteoarthritis of the 3rd DIP joint. Right Knee: Normal. Left Knee: Normal.
--- NOTE | ~2023-05-13 | XR_ITS ---
EXAMINATION: XR HAND, BILATERAL XR KNEE, BILATERAL CLINICAL INFORMATION: Bilateral hand and knee pain. COMPARISON: None available. TECHNIQUE: 3 views of each hand. 3 views of each knee. FINDINGS: RIGHT HAND: Chronic deformity or central erosion of the 4th distal phalanx at the PIP joint which is narrowed. Mild narrowing of the 2nd DIP joint as well as the 3rd and 4th PIP joints. No definite active erosion or suspicious soft tissue calcification. LEFT HAND: Narrowing with central erosions and marginal osteophytes at the 3rd DIP joint suggesting chronic erosive osteoarthritis. Similar although less prominent findings of the 2nd DIP joint. Mild narrowing of the 4th and 5th DIP joints. No definite active erosions. RIGHT KNEE: No joint space narrowing. No joint effusion. No fracture or significant degenerative findings. LEFT KNEE: No joint space narrowing. No joint effusion. No fracture or significant degenerative findings. XR/XR hand LT min 3V IMPRESSION: Right Hand: Arthritic changes as described with possible moderate chronic erosive osteoarthritis of the 4th DIP joint. Left Hand: Arthritic changes as described, [id number] at the 2nd and 3rd DIP joints with probable chronic erosive osteoarthritis of the 3rd DIP joint. Right Knee: Normal. Left Knee: Normal.
--- NOTE | ~2023-05-13 | XR_ITS ---
EXAMINATION: XR HAND, BILATERAL XR KNEE, BILATERAL CLINICAL INFORMATION: Bilateral hand and knee pain. COMPARISON: None available. TECHNIQUE: 3 views of each hand. 3 views of each knee. FINDINGS: RIGHT HAND: Chronic deformity or central erosion of the 4th distal phalanx at the PIP joint which is narrowed. Mild narrowing of the 2nd DIP joint as well as the 3rd and 4th PIP joints. No definite active erosion or suspicious soft tissue calcification. LEFT HAND: Narrowing with central erosions and marginal osteophytes at the 3rd DIP joint suggesting chronic erosive osteoarthritis. Similar although less prominent findings of the 2nd DIP joint. Mild narrowing of the 4th and 5th DIP joints. No definite active erosions. RIGHT KNEE: No joint space narrowing. No joint effusion. No fracture or significant degenerative findings. LEFT KNEE: No joint space narrowing. No joint effusion. No fracture or significant degenerative findings. XR/XR knee LT 3V IMPRESSION: Right Hand: Arthritic changes as described with possible moderate chronic erosive osteoarthritis of the 4th DIP joint. Left Hand: Arthritic changes as described, [id number] at the 2nd and 3rd DIP joints with probable chronic erosive osteoarthritis of the 3rd DIP joint. Right Knee: Normal. Left Knee: Normal.
--- NOTE | ~2023-05-13 | XR_ITS ---
EXAMINATION: XR HAND, BILATERAL XR KNEE, BILATERAL CLINICAL INFORMATION: Bilateral hand and knee pain. COMPARISON: None available. TECHNIQUE: 3 views of each hand. 3 views of each knee. FINDINGS: RIGHT HAND: Chronic deformity or central erosion of the 4th distal phalanx at the PIP joint which is narrowed. Mild narrowing of the 2nd DIP joint as well as the 3rd and 4th PIP joints. No definite active erosion or suspicious soft tissue calcification. LEFT HAND: Narrowing with central erosions and marginal osteophytes at the 3rd DIP joint suggesting chronic erosive osteoarthritis. Similar although less prominent findings of the 2nd DIP joint. Mild narrowing of the 4th and 5th DIP joints. No definite active erosions. RIGHT KNEE: No joint space narrowing. No joint effusion. No fracture or significant degenerative findings. LEFT KNEE: No joint space narrowing. No joint effusion. No fracture or significant degenerative findings. XR/XR knee RT 3V IMPRESSION: Right Hand: Arthritic changes as described with possible moderate chronic erosive osteoarthritis of the 4th DIP joint. Left Hand: Arthritic changes as described, [id number] at the 2nd and 3rd DIP joints with probable chronic erosive osteoarthritis of the 3rd DIP joint. Right Knee: Normal. Left Knee: Normal.
[2023-05-13 16:19] LABS: MANUAL DIFF FLAG NO
[2023-05-13 17:21] LABS: Basophils Absolute Auto 0.1 X10*3/uL (0.0-0.2); Basophils Percent Auto 0.7 % (0-2); Eosinophils Absolute Auto 0.3 X10*3/uL (0.0-0.4); Eosinophils Percent Auto 2.9 % (0-4); Hematocrit 42.2 % (37.0-47.0); Hemoglobin 14.1 g/dl (12.0-16.0); Imm Gran Abs Auto 0.03 X10*3/uL (0.00-0.03); Imm Gran Pct Auto 0.3 % (0.0-0.4); Lymphocytes Absolute Auto 2.5 X10*3/uL (1.2-4.9); Lymphocytes Percent Auto 27.9 % (20-40); Mean Corpuscular HGB Conc 33.4 g/dl (31.0-35.0); Mean Corpuscular Volume 98.8 fL (80.0-98.0); Mean Platelet Volume 10.3 fL (9.4-12.3); Monocytes Absolute Auto 0.5 X10*3/uL (0.1-1.2); Monocytes Percent Auto 5.9 % (2-11); Neutrophils Absolute Auto 5.5 x10*3/uL (2.0-8.3); Neutrophils Percent Auto 62.3 % (45-73); Platelet Count 347 X10*3/uL (160-400); Red Blood Count 4.27 X10*6/uL (4.20-5.50); Red Cell Distribution Width 13.8 % (11.0-16.0); White Blood Count 8.8 X10*3/uL (4.8-10.8)
[2023-05-13 17:29] LABS: Estimated Average Glucose 123 mg/dL; Hemoglobin A1c % 5.9 % (<6.0)
[2023-05-13 17:53] LABS: Rheumatoid Factor < 13.0 IU/mL (<15.0)
[2023-05-13 18:01] LABS: Uric Acid 5.5 mg/dL (2.4-5.7)
[2023-05-13 18:06] LABS: Alanine Aminotransferase 35 U/L (0-31); Albumin Level 4.8 g/dL (3.5-5.0); Alkaline Phosphatase 170 U/L (39-117); Anion Gap 16 (12-20); Aspartate Amino Transferase 22 U/L (5-31); Bilirubin Total 0.4 mg/dL (0.0-1.0); Blood Urea Nitrogen 13 mg/dL (9-16); C Reactive Protein 1.66 mg/dL (< or = 0.50); Carbon Dioxide 26 mmol/L (22-29); Chloride 103 mmol/L (96-108); Cholesterol 206 mg/dL (<200); Estimated Glomerular Filt Rate > 60; Glucose Random 92 mg/dL (60-115); HDL Cholesterol 47 mg/dL (>40); Iron 117 mcg/dL (30-160); LDL Cholesterol Calculated 113 mg/dL (<100); Percent Iron Saturation 34 % (15-50); Potassium 3.6 mmol/L (3.3-5.1); Sodium 141 mmol/L (135-145); Total Iron Binding Capacity 346 mcg/dL (228-428); Total Protein 8.7 g/dL (6.5-8.0); Triglycerides 231 mg/dL (<150); Unsaturated Iron Binding 229 ug/dL
[2023-05-13 18:14] LABS: Ferritin 100 ng/mL (10-250); Insulin 7 uU/mL (2-29); TSH reflex Free T4 0.84 uIU/mL (0.32-4.0); Vitamin D 25-OH Total 54.9 ng/mL (>30)
[2023-05-13 18:18] LABS: Erythrocyte Sedimentation Rate 36 MM/HR (0-20)
[2023-05-13 18:35] LABS: Folate > 20.0 ng/mL (> or = 4.0); Vitamin B12 708 pg/mL (200-900)
[2023-05-14 09:59] LABS: HBS Num1 37.66 mIU/mL (0-7.99); HBc Num1 0.05 S/CO (0.00-0.79); HBsAGNum1 0.27 S/CO (0.00-0.99); Hepatitis A Antibody IgM 0.24 Index (0-0.79); Hepatitis B Core Antibody Nonreactive (Nonreactive); Hepatitis B Surface Antigen Negative (Negative); ~HepC Num1 14.15 S/CO (0.00-0.79); ~Hepatitis A Antibody IgM Nonreactive (Nonreactive); ~Hepatitis B Surface Antibody REACTIVE (Nonreactive); ~Hepatitis C Antibody Reactive (Nonreactive)
[2023-05-15 09:28] LABS: Anti Nuclear Antibody Screen NEGATIVE (NEGATIVE)
[2023-05-15 21:23] LABS: TS Negative Control Passed; TS Panel A 0; TS Panel B 0; TS Positive Control Passed; TSpotTB Negative (Negative)
[2023-05-16 10:03] LABS: Prot Elec - Albumin 4.3 g/dL (3.8-4.8); Prot Elec - Alpha1 0.4 g/dL (0.2-0.3); Prot Elec - Alpha2 0.9 g/dL (0.5-0.9); Prot Elec - Beta 1 0.5 g/dL (0.4-0.6); Prot Elec - Beta 2 0.5 g/dL (0.2-0.5); Prot Elec - Total Protein 7.5 g/dL (6.1-8.1)
[2023-05-17 07:13] LABS: Complement C3 201 mg/dL (83-193)
[2023-05-17 12:43] LABS: Cyclic Citrullinated Peptide <16 UNITS
[2023-05-17 12:53] LABS: IgA 217 mg/dL (47-310); IgG 976 mg/dL (600-1640); IgM 88 mg/dL (50-300)
[2023-05-17 13:04] LABS: Zinc 79 mcg/dL (60-130)
[2023-05-18 12:17] LABS: Vitamin B1 29 nmol/L (8-30)
[2023-05-18 17:18] LABS: Vitamin A 62 mcg/dL (38-98)
[2023-05-19 13:17] LABS: Anti DNA DS Antibody 5 IU/mL; Antibody to SS-A Antigen <1.0 NEG AI (<1.0 NEG); Antibody to SS-B Antigen <1.0 NEG AI (<1.0 NEG); SM/Ribonucleoprotein Ab <1.0 NEG AI (<1.0 NEG); Smith Protein <1.0 NEG AI (<1.0 NEG)
== END 2023-05-13 14:46 | disposition home or self-care (01) ==
LOC: HO.XRAY 14:45
PROVIDERS: Surgery; PCP Internal Medicine; Visit Provider Nurse Practitioner Family
DX: M25.50 Pain in unspecified joint (principal); M79.641 Pain in right hand; M79.642 Pain in left hand; M25.561 Pain in right knee; M25.562 Pain in left knee; R73.03 Prediabetes; E66.01 Morbid (severe) obesity due to excess calories; E78.5 Hyperlipidemia, unspecified
CPT/HCPCS: 36415; 73130; 73562; 80053; 80061; 82306; 82550; 82607; 82728; 82746; 82784; 83036; 83525; 83540; 84165; 84425; 84443; 84550; 84590; 84630; 85025; 85652; 86038; 86140; 86160; 86200; 86225; 86235; 86334; 86431; 86481; 86704; 86706; 86709; 86803; 87340; 99202

== ENCOUNTER 2023-05-13 14:45 | Outpatient (AMB) | payer OTHER, SELFPAY ==
--- NOTE | 2023-05-13 14:45 | A.OFFVIS_ITS ---
Intake Intake Visit Reasons: Hand Pain Intake Note: New patient, externally referred, presents to office today for hand pain. 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 Jaimes a 53-year-old female presents for evaluation of multiple joint pain and weakly positive rheumatoid factor. She is here on referral from her PCP. She has a PMH hypertension, asthma, TBI, dyslipidemia, and anxiety. She describes hand pain and swelling especially in the morning. The the patient describes that DIP finger joints are lumpy, they get very sore, and some of them are turning. There is pain to her bilateral thighs that gives her the sensation that someone is squeezing her bones. She has a history of hepatitis-C x2 but has been treated and resolved. She has an everyday smoker. She denies uveitis, plantar fasciitis, tendonitis, and rashes, sun sensitivity and Raynaud's. She has not had issue with uveitis, mouth sores or nose sores. 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 She is attending college and intends to graduate with her degree sociology. --per patient labs show abnormal rheumat oid factor on her phone taken in 2022 16 on a scale of 0-15. --she was crying during visit for concer lainey over her son - drug and alcohol [facility] Medical History (Updated 05/13/23 @ 16:52 by RONAN Barron) Bilateral knee pain Bilateral hand pain Pain in joint involving multiple sites ADHD PTSD (post-traumatic stress disorder) Prediabetes Hyperlipidemia Morbid obesity Surgical History Hx of tubal ligation History of ear surgery Family History Mother Hypertension Diabetes High cholesterol Father No problems noted. Brother Colon cancer Hypertension High cholesterol Diabetes Son No problems noted. Son No problems noted. Social History Alcohol intake: former Patient Tobacco Use Status: Current everyday Tobacco user Cigarette Packs Per Day: 1 Substance Use Type: Crack/Cocaine and Heroin Review of Systems Const All systems reviewed & are unremarkable except as noted in HPI and below Physical Exam APPEARANCE: Patient in no acute distress EYES no redness, normal EARS:? External ear normal. NOSE/SINUS:? Airflow through both nares, no nasal discharge, no bleeding THROAT:? Oral mucosa moist, no ulcerations NECK:? No thyromegaly or masses, no adenopathy, trachea midline. HEART:? Regular rhythm, S1-S2 heard, no murmurs, rubs or gallops. LUNG:? Clear to percussion and auscultation EXTREMITIES:? No edema, no calf tenderness, normal peripheral pulses. NEURO:? Oriented and alert x3.? No focal weakness.? Reflexes symmetric.? Gait normal. SKIN:? There are no skin lesions evident. No objective signs of Raynaud's phenomenon. JOINT EXAM: Cervical Spine:.? Full range of motion without pain; no tenderness. Thoracic Spine:.? No scoliosis.? No tenderness on palpation. Lumbar Spine:.? Alignment normal.? Full range of motion without pain, no tenderness. Chest Wall:.? No tenderness, swelling, increased warmth or erythema. Hands:.? Normal range of motion with tenderness across DIPs, Heberden nodes across DIPs, but no swelling, increased warmth or erythema. There is deformity to bilateral 2nd and 4th DIP. 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 Wrists:.? Normal pain-free range of motion without tenderness, swelling, increased warmth or erythema. Elbows:. Normal pain-free range of motion without tenderness, swelling, increased warmth or erythema. Shoulders:.?? Full range of motion without pain. No tenderness, weakness, swelling, increased warmth or erythema. Hips:.? Full range of motion without pain. Hip bursa:.? No tenderness. Knees:.?? Normal pain-free range of motion with tenderness at the parapatellar joint line but no, swelling, increased warmth or erythema.? There is no effusion or crepitation Ankles:.? Normal pain-free range of motion without tenderness, swelling, increased warmth or erythema. Feet:.? Normal pain-free range of motion without tenderness, swelling, increased warmth or erythema. Tender points:? No tenderness to digital palpation at the occiput, trapezius, second rib, lateral epicondyle, knees, greater trochanter and gluteal area bilaterally. ? Assessment & Plan Assessment & Plan (1) Pain in joint involving multiple sites: Code(s): M25.50 - Pain in unspecified joint (2) Bilateral knee pain: Code(s): M25.561 - Pain in right knee; M25.562 - Pain in left knee Qualifiers: Chronicity: chronic Qualified Code(s): M25.561 - Pain in right knee; M25.562 - Pain in left knee; G89.29 - Other chronic pain (3) Bilateral hand pain: Code(s): M79.641 - Pain in right hand; M79.642 - Pain in left hand Plan Ms. Infante has multiple joint pains throughout her body. Her hands have evidence of osteoarthritis across her DIPs where there are Heberden nodes, which also can be seen in PSA. There is also some ulnar deviation at some DIP joints. These DIP can get tender and sore at times per patient. At this time I do not see any other evidence of inflammatory arthritis. I will do further evaluation with a full rheumatology panel. I will of have her hands and knees x-rayed to assess for inflammatory features such as erosions. I will give her a course of prednisone is on for 3 weeks until next visit. The patient will assess for improvement and keep track of any changes on the med and what happens when she stops the prednisone. I spent 40 minutes reviewing history, assessing patient and discussing osteoarthritis versus inflammatory arthritis and documenting. Follow-up in 4 weeks Orders: Orders Erythrocyte Sedimentation Rate Today M25.50 - Pain in unspecified joint, M79.641 - Pain in right hand, M79.642 - Pain in left hand GARETT Reflex Titer and Pattern Today M25.50 - Pain in unspecified joint, M79.641 - Pain in right hand, M79.642 - Pain in left hand Complement C3 Today M25.50 - Pain in unspecified joint, M79.641 - Pain in right hand, M79.642 - Pain in left hand Complement C4 Today M25.50 - Pain in unspecified joint, M79.641 - Pain in right hand, M79.642 - Pain in left hand Comprehensive Met. Panel Today M25.50 - Pain in unspecified joint, M79.641 - Pain in right hand, M79.642 - Pain in left hand C Reactive Protein Today M25.50 - Pain in unspecified joint, M79.641 - Pain in right hand, M79.642 - Pain in left hand Creatine Kinase Total Today M25.50 - Pain in unspecified joint, M79.641 - Pain in right hand, M79.642 - Pain in left hand Immunoglobulins,IgG IgA IgM Today M25.50 - Pain in unspecified joint, M79.641 - Pain in right hand, M79.642 - Pain in left hand Sjogren's Antibodies Today M25.50 - Pain in unspecified joint, M79.641 - Pain in right hand, M79.642 - Pain in left hand T Spot TB Today M25.50 - Pain in unspecified joint, M79.641 - Pain in right hand, M79.642 - Pain in left hand Uric Acid Today M25.50 - Pain in unspecified joint, M79.641 - Pain in right hand, M79.642 - Pain in left hand Rheumatoid Factor Today M25.50 - Pain in unspecified joint, M79.641 - Pain in right hand, M79.642 - Pain in left hand XR hand RT min 3V Today M25.50 - Pain in unspecified joint, M79.641 - Pain in right hand, M79.642 - Pain in left hand XR knee RT 3V Today M25.50 - Pain in unspecified joint, M25.561 - Pain in right knee, M25.562 - Pain in left knee XR hand LT min 3V Today M79.641 - Pain in right hand, M79.642 - Pain in left hand Anti DNA DS Antibody Today M25.50 - Pain in unspecified joint, M79.641 - Pain in right hand, M79.642 - Pain in left hand Anti Extractable Nuclear Ag Today M25.50 - Pain in unspecified joint, M79.641 - Pain in right hand, M79.642 - Pain in left hand Complete Blood Count Auto Diff Today M25.50 - Pain in unspecified joint, M79.641 - Pain in right hand, M79.642 - Pain in left hand Immunofixation Pnl, Serum Today M25.50 - Pain in unspecified joint, M79.641 - Pain in right hand, M79.642 - Pain in left hand Protein Electrophoresis, Serum Today M25.50 - Pain in unspecified joint, M79.641 - Pain in right hand, M79.642 - Pain in left hand Hepatitis A,B,C Profile Today M25.50 - Pain in unspecified joint, M79.641 - Pain in right hand, M79.642 - Pain in left hand Cyclic Citrullinated Peptide Today M25.50 - Pain in unspecified joint, M79.641 - Pain in right hand, M79.642 - Pain in left hand XR knee LT 3V Today M25.50 - Pain in unspecified joint, M79.641 - Pain in right hand, M79.642 - Pain in left hand Medications: New prednisone orally daily; 3 times per day x 7 days 2 times per day times 7 day 1 day per times 7 day 45 tabs 0RF M25.50 - Pain in unspecified joint, M25.561 - Pain in right knee, M25.562 - Pain in left knee Coding Level of Care Code New Pt Level 4 (03428) Diagnoses Pain in joint involving multiple sites M25.50 Chronic pain of both knees M25.561; M25.562; G89.29 Chronicity: chronic Bilateral hand pain M79.641; M79.642
== END 2023-05-13 15:48 | disposition home or self-care (01) ==
PROVIDERS: PCP Internal Medicine; Visit Provider Nurse Practitioner Family
DX: M25.50 Pain in unspecified joint (principal); M25.561 Pain in right knee; M25.562 Pain in left knee; G89.29 Other chronic pain; M79.641 Pain in right hand; M79.642 Pain in left hand
CPT/HCPCS: 99204

== ENCOUNTER 2023-06-15 15:44 | Outpatient (AMB) | payer OTHER, SELFPAY ==
[2023-06-15 15:45] VITALS: BP 110/82; PULSE 89; O2SAT 98; BMI 42.6
--- NOTE | 2023-06-15 15:45 | A.OFFVIS_ITS ---
Vital Signs 06/15/23 15:45 Height 4 ft 6 in Weight 176 lb 12.972 oz BMI 42.6 BP 110/82 Blood Pressure Location Rt brachial Position Sitting Pulse 89 Pulse Source Pulse Oximeter Pulse Oximetry (%) 98 Oxygen Delivery Method Room Air Intake Visit Reasons: Polyarthralgia Intake Note: Patient last seen on 05/13/23, presents to office today for polyarthralgia follow up and test results. Neurological Physiotherapist Required: No Accompanied by: Friend Allergies Dust, Dogs, Cats, Rabbits Allergy (Unknown, Uncoded 06/15/23 15:45) Unknown HPI Comments Details: Ms. Infante a 53-year-old female presents follow-up to review results for evaluation of multiple joint pain and weakly positive rheumatoid factor. The patient did not take the prednisone as prescribed for fear of gaining weight. Initial History 05/13/2023 Ms. Infante a 53-year-old female presents for evaluation of multiple joint pain and weakly positive rheumatoid factor. She is here on referral from her PCP. She has a H hypertension, asthma, TBI, dyslipidemia, and anxiety. She describes hand pain and swelling especially in the morning. The the patient describes that DIP finger joints are lumpy, they get very sore, and some of them are turning. There is pain to her bilateral thighs that gives her the sensation that someone is squeezing her bones. She has a history of hepatitis-C x2 but has been treated and resolved. She is an everyday smoker. She denies uveitis, plantar fasciitis, tendonitis, and rashes, sun sensitivity and Raynaud's. She has not had issue with uveitis, mouth sores or nose sores. 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 She is attending college and intends to graduate with her degree sociology. --per patient labs show abnormal rheumatoid factor on her phone taken in 2022 16 on a scale of 0-15. --she was crying during visit for concerned over her son - drug and alcohol [facility] Medical History (Updated 07/04/23 @ 23:07 by RACHEL Barron-) Erosive osteoarthritis of multiple sites Bilateral knee pain Bilateral hand pain Pain in joint involving multiple sites ADHD PTSD (post-traumatic stress disorder) Prediabetes Hyperlipidemia Morbid obesity Surgical History (System 05/16/23 @ 10:17 by Pretty Joyce) Hx of tubal ligation History of ear surgery Family History Mother Hypertension Diabetes High cholesterol Father No problems noted. Brother Colon cancer Hypertension High cholesterol Diabetes Son No problems noted. Son No problems noted. Social History Alcohol intake: former Patient Tobacco Use Status: Current everyday Tobacco user Cigarette Packs Per Day: 1 Substance Use Type: Crack/Cocaine and Heroin Review of Systems Const All systems reviewed & are unremarkable except as noted in HPI and below Physical Exam Vital Signs: Last Vital Signs Pulse 89 06/15/23 15:45 BP 110/82 06/15/23 15:45 Pulse Ox 98 06/15/23 15:45 Oxygen Delivery Method Room Air 06/15/23 15:45 BMI result Body Mass Index 42.6 APPEARANCE: Patient in no acute distress HEART:? Regular rhythm, S1-S2 heard, no murmurs, rubs or gallops. LUNG:? Clear to percussion and auscultation EXTREMITIES:? No edema, no calf tenderness, normal peripheral pulses. NEURO:? Oriented and alert x3.? No focal weakness.? Reflexes symmetric.? Gait normal. SKIN:? There are no skin lesions evident. No objective signs of Raynaud's phenomenon. JOINT EXAM: Hands:.? Normal range of motion with tenderness across DIPs, Heberden nodes across DIPs, but no swelling, increased warmth or erythema. There is deformity to bilateral 2nd and 4th DIP. Able to make a full fist but has reduced cargo bracer strength. Wrists:.? Normal pain-free range of motion without tenderness, swelling, incr eased warmth or erythema. Hip bursa:.? No tenderness. Knees:.?? Normal pain-free range of motion with tenderness at the parapatellar joint line but no, swelling, increased warmth or erythema.? There is no effusion or crepitation Ankles:.? Normal pain-free range of motion without tenderness, swelling, increased warmth or erythema. Feet:.? Normal pain-free range of motion without tenderness, swelling, increased warmth or erythema. Tender points:? No tenderness to digital palpation at the occiput, trapezius, second rib, lateral epicondyle, knees, greater trochanter and gluteal area bilaterally. ? Results Reviewed Results Reviewed: Laboratory Tests 05/13/23 16:14 MCV 98.8 H ESR 36 H Calcium 11.0 H D ALT 35 H Alkaline Phosphatase 170 H Total Creatine Kinase 166 H C-Reactive Protein 1.66 H Total Protein 8.7 H [id number] 0.4 H 25-OH Vitamin D Total 54.9 IgG Total 976 IgA Total 217 IgM 88 Double Strand DNA Ab 5 H Complement C3 201 H Hepatitis C Ab (EIA) Reactive H 3 views of each hand. 3 views of each knee. FINDINGS: RIGHT HAND: Chronic deformity or central erosion of the 4th distal phalanx at the PIP joint which is narrowed. Mild narrowing of the 2nd DIP joint as well as the 3rd and 4th PIP joints. No definite active erosion or suspicious soft tissue calcification. LEFT HAND: Narrowing with central erosions and marginal osteophytes at the 3rd DIP joint suggesting chronic erosive osteoarthritis. Similar although less prominent findings of the 2nd DIP joint. Mild narrowing of the 4th and 5th DIP joints. No definite active erosions. RIGHT KNEE: No joint space narrowing. No joint effusion. No fracture or significant degenerative findings. LEFT KNEE: No joint space narrowing. No joint effusion. No fracture or significant degenerative findings. XR/XR knee LT 3V IMPRESSION: Right Hand: Arthritic changes as described with possible moderate chronic erosive osteoarthritis of the 4th DIP joint. Left Hand: Arthritic changes as described, [id number] at the 2nd and 3rd DIP joints with probable chronic erosive osteoarthritis of the 3rd DIP joint. Right Knee: Normal. Assessment & Plan Assessment & Plan (1) Pain in joint involving multiple sites: Code(s): M25.50 - Pain in unspecified joint Category: Medical (2) Bilateral knee pain: Code(s): M25.561 - Pain in right knee; M25.562 - Pain in left knee Category: Medical Qualifiers: Chronicity: chronic Qualified Code(s): M25.561 - Pain in right knee; M25.562 - Pain in left knee; G89.29 - Other chronic pain (3) Erosive osteoarthritis of multiple sites: Code(s): M15.4 - Erosive (osteo)arthritis Category: Medical Plan #Erosive OA of hands: Ms. Infante hands have evidence of osteoarthritis across her DIPs where there are Heberden nodes, which also can be seen in PSA, but clarified as Erosive OA due to centrol erosions seen on imaging. There is also some ulnar deviation at some DIP joints. These DIP can get tender and sore at times per patient. Her ESR/CRP are elevated, along with total protein and C3, calcium which can be seen in the context of Hep C history. Her IgA/IgG is WNL. She will take the 3 weeks course Prednisone to see if that helps with the pain and swelling. The patient will assess for improvement and keep track of any changes on the med and what happens when she stops the prednisone. I spent 30 minutes reviewing chart, assessing patient and discussing erosive osteoarthritis versus PsA and documenting. Follow-up in 5 weeks Medications: Changed From prednisone orally daily; 3 times per day x 7 days 2 times per day times 7 day 1 day per times 7 day 45 tabs 0RF M25.50 - Pain in unspecified joint, M25.561 - Pain in right knee, M25.562 - Pain in left knee To prednisone orally daily; 3 times per day x 7 days 2 times per day times 7 day 1 day per times 7 day 45 tabs 0RF M25.50 - Pain in unspecified joint, M25.561 - Pain in right knee, M25.562 - Pain in left knee Coding Level of Care Code Est Pt Level 3 (29104) Complex EM visit Add On G2211 Diagnoses Pain in joint involving multiple sites M25.50 Chronic pain of both knees M25.561; M25.562; G89.29 Chronicity: chronic Erosive osteoarthritis of multiple sites M15.4
== END 2023-06-15 16:21 | disposition home or self-care (01) ==
PROVIDERS: PCP Internal Medicine; Visit Provider Nurse Practitioner Family
DX: M25.50 Pain in unspecified joint (principal); M25.561 Pain in right knee; M25.562 Pain in left knee; G89.29 Other chronic pain; M15.4 Erosive (osteo)arthritis
CPT/HCPCS: 99213; G2211

== ENCOUNTER → 2023-06-15 15:44 | Outpatient (BNVA) | payer OTHER, SELFPAY | PROVIDERS: PCP Internal Medicine; Visit Provider Nurse Practitioner Family | DX: M25.50 Pain in unspecified joint (principal); M15.4 Erosive (osteo)arthritis; M25.561 Pain in right knee; M25.562 Pain in left knee | CPT/HCPCS: 99212 ==

== ENCOUNTER 2024-03-08 14:22 | Outpatient (AMB) | payer OTHER, SELFPAY ==
--- NOTE | 2024-03-08 14:26 | A.OFFVIS_ITS ---
Vital Signs 03/08/24 14:35 Height 4 ft 6 in Weight 175 lb 7.807 oz BMI 42.3 BP 130/78 Blood Pressure Location Lt brachial Position Sitting Pulse 90 Pulse Source Pulse Oximeter Pulse Oximetry (%) 98 Oxygen Delivery Method Room Air Intake Visit Reasons: Joint Pain/ESR/CRP - Prednisone Taper Intake Note: Patient presents for joint pain/ESR/CRP-Prednisone Taper. Allergies Dust, Dogs, Cats, Rabbits Allergy (Unknown, Uncoded 06/15/23 15:45) Unknown Medication List - Last Reconciled 03/08/24 by Monika Perez MD albuterol sulfate 90 mcg/actuation (ProAir HFA) 2 puffs inhalation Q6H PRN atorvastatin 20 mg PO DAILY cholecalciferol (vitamin D3) 25 mcg PO DAILY clonazepam 1 mg PO BID dextroamphetamine-amphetamine 30 mg 1 tab PO ONCE fexofenadine (Simran Allergy) 60 mg PO BID fluticasone furoate-vilanterol 100-25 mcg/dose inhalation fluticasone propionate 50 mcg/actuation (Flonase Allergy Relief) 2 sprays intranasal DAILY folic acid 1 mg PO DAILY furosemide 20 mg PO DAILY lamotrigine 200 mg PO DAILY loratadine (Claritin) 10 mg PO DAILY prednisone orally daily; 3 times per day x 7 days 2 times per day times 7 day 1 day per times 7 day venlafaxine ER (Effexor XR) 75 mg PO DAILY HPI Comments Details: The patient is a 54 year old female current every day smoker with multiple psychiatric diagnoses including ADHD, Bipolar and anxiey who is here today to follow up for erosive arthritis Interval History: Patient last seen 06/15/2023 with Halima Antunez. At that time she was complaining of bilateral knee and bilateral hand pain. She she was prescribed a prednisone taper to see if this would assist in her pain. Today, Patient states that she took the prednisone taper but this did not assist her pain. Continues to complain of hand pain and knee pain Was very anxious today concerned about diagnosis of rheumatoid arthritis and if this would kill her. She was even to the point of tears because she was concerned about her diagnosis Rheumatologic History: Patient establish care 05/2023 for the evaluation of bilateral hand pain in the setting of positive GARETT. X-rays consistent with erosive osteoarthritis. She received a trial of Prednisone which she stated did not assist her with her pain. Current Rheumatology Medication(s): [facility] Medical History (Updated 07/04/23 @ 23:07 [facility] Erosive osteoarthritis of multiple sites Bilateral knee pain Bilateral hand pain Pain in joint involving multiple sites ADHD PTSD (post-traumatic stress disorder) Prediabetes Hyperlipidemia Morbid obesity Surgical History Hx of tubal ligation History of ear surgery Family History Mother Hypertension Diabetes High cholesterol Father No problems noted. Brother Colon cancer Hypertension High cholesterol Diabetes Son No problems noted. Son No problems noted. 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 Well appearing and in no apparent painful distress HEENT Conjunctiva and sclera clear. ?Pupils equal round and reactive to light. ?No lymphadenopathy. ? CHEST/RESPIRATORY SYSTEM Normal respiratory effort and able to speak in complete sentences. ?Clear to auscultation bilaterally. ?No crackles, rales, rhonchi, wheezes heard. CARDIAC SYSTEM Regular rate and rhythm. ?S1 and S2 heard no murmurs. ?Radial pulses intact bilaterally MSK Hands: ?Good wax engraver strength bilaterally. No deformities noted. ?Prominent Heberden's nodes involving the 2nd PIP bilaterally. Also involving the 5th PIP on the right. Mild tenderness to palpation of the 2nd DIPs on the right. No MCP tenderness to palpation Wrists: ?Full range of motion at the wrists without pain. ?No tenderness to palpation or synovitis noted to the wrists. Elbows: Full range of motion without pain. No tenderness, weakness, swelling, increased warmth or erythema. Shoulders: Full range of motion without pain. No tenderness, weakness, swelling, increased warmth or erythema. Hips: Full range of motion without pain. Hip bursa: No tenderness to palpation Knees: ?Full range of motion. ?No tenderness, swelling, increased warmth or erythema.? Bilateral crepitations felt. Ankles: Full range of motion. ?No tenderness, swelling, increased warmth or erythema.? Feet: ?Negative squeeze test. ?No tenderness to palpation or swelling of the MTPs. Tender points:?No tenderness to palpation of the bilateral trapezius, supraspinatus, greater trochanters, anterior costochondral junctions, bilateral gluteal areas, bilateral suboccipital muscle insertions SKIN Skin intact without rashes. Results Reviewed Results Reviewed: Laboratory Tests 12/21/20 05/13/23 00:46 16:14 WBC 8.8 RBC 4.27 Hgb 14.1 Hct 42.2 Plt Count 318 347 ESR 36 H Sodium 141 Potassium 3.6 Chloride 103 Carbon Dioxide 26 BUN 13 Creatinine 0.95 Total Bilirubin 0.4 AST 22 ALT 35 H Total Creatine Kinase 166 H C-Reactive Protein 1.66 H Total Protein 8.7 H 25-OH Vitamin D Total 54.9 Rheumatoid Factor < 13.0 Cycl Citrul Peptide IgG <16 GARETT Screen NEGATIVE SS-A/Ro Antibody <1.0 NEG SS-B/La Antibody <1.0 NEG Double Strand DNA Ab 5 H Complement C3 201 H Complement C4 46 XR Hands and Knees 05/2023 FINDINGS: RIGHT HAND: Chronic deformity or central erosion of the 4th distal phalanx at the PIP joint which is narrowed. Mild narrowing of the 2nd DIP joint as well as the 3rd and 4th PIP joints. No definite active erosion or suspicious soft tissue calcification. LEFT HAND: Narrowing with central erosions and marginal osteophytes at the 3rd DIP joint suggesting chronic erosive osteoarthritis. Similar although less prominent findings of the 2nd DIP joint. Mild narrowing of the 4th and 5th DIP joints. No definite active erosions. RIGHT KNEE: No joint space narrowing. No joint effusion. No fracture or significant degenerative findings. LEFT KNEE: No joint space narrowing. No joint effusion. No fracture or significant degenerative findings. Assessment & Plan Assessment & Plan (1) Erosive osteoarthritis of multiple sites: Code(s): M15.4 - Erosive (osteo)arthritis Category: Medical Plan: #Erosive OA Patient is a 54-year-old female with significant psychiatric issues on medication who presents today for follow up of her erosive osteoarthritis. Patient tried prednisone but this did not help her. She also has a history of kidney issues and liver issues on a background of her substance abuse history and so she is concerned about taking medications. At this time I discussed with the patient and I think that she would benefit from topical diclofenac using it up to 4 times a day. I also recommended copper gloves for her to wear. I discussed with her the diagnosis of erosive osteoarthritis and if in the future there is concern for worsening knee pain we can do gel injections Plan - Topical diclofenac 1% 4 times a day - Copper arthritis gloves - RTC 6 months - Labs before next visit: CBC, CMP, ESR, CRP Plan I spent 20 minutes reviewing the record and labs, taking a history, examining the patient, discussing the treatment plan and documenting in the medical record Orders: Orders Complete Blood Count Auto Diff 6 Months M15.4 - Erosive (osteo)arthritis Erythrocyte Sedimentation Rate 6 Months M15.4 - Erosive (osteo)arthritis Comprehensive Met. Panel 6 Months M15.4 - Erosive (osteo)arthritis C Reactive Protein 6 Months M15.4 - Erosive (osteo)arthritis Medications: New diclofenac sodium 1% (Arthritis Pain (diclofenac)) apply to single knee, ankle, foot; for foot includes sole/toes/top of foot 4 grams topical QID 100 grams 5RF M15.4 - Erosive (osteo)arthritis Discontinued prednisone Discontinued Reason: Doctor's Order orally daily; 3 times per day x 7 days 2 times per day times 7 day 1 day per times 7 day 45 tabs 0RF M25.50 - Pain in unspecified joint, M25.561 - Pain in right knee, M25.562 - Pain in left knee Coding Level of Care Code Est Pt Level 3 (14438) Complex EM visit Add On G2211 Diagnoses Erosive osteoarthritis of multiple sites M15.4
[2024-03-08 14:35] VITALS: BP 130/78; PULSE 90; O2SAT 98; BMI 42.3
--- OUTSIDE RECORDS SUMMARY | 2024-03-08 18:19 | XMS_ITS | Clinical Summary ---
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 of calcium, in the upper outer right breast are noted. IMPRESSION: : Dense breast tissue, limiting the sensitivity of mammography. No mammographic evidence of malignancy. BIRADS 2-benign 5 year breast cancer risk assessment 1.0 % Lifetime breast cancer risk assessment 9.1 % Breast cancer risk category Low (<15%) Procedure Note Yesica Frances MD - 03/15/2023 This is a summary report. The complete report is available in thepatient's medical record. If you cannot access the medical record, pleasecontact the sending organization for a detailed fax or copy. Full field digital screening tomosynthesis mammography, reviewed with CADand compared to previous. The breast tissue is heterogeneously dense,limiting sensitivity. No suspicious mass, architectural distortion orsuspicious calcifications are identified. 2 groupings ofmicrocalcifications demonstrating tea cups , consistent with benign milkof calcium, in the upper outer right breast are noted. IMPRESSION: : Dense breast tissue, limiting the sensitivity of mammography. Nomammographic evidence of malignancy. BIRADS 2-benign 5 year breast cancer risk assessment 1.0 % Lifetime breast cancer risk assessment 9.1 % Breast cancer risk category Low (<15%) Citlalli Ely MD IMG XR PROCEDURES * Hepatitis C Screening (03/24/2022) Hepatitis C Screening abstracted Historical Provider [facility] * Cervical Cancer Screening: HPV (04/04/2020) [facility] Cervical Cancer Screening: HPV negative, abstracted Historical Provider [facility] * HIV Screening (06/09/2010) [facility] HIV Screening abstracted Historical [facility] Last 3 Months or Most Recently Relevant to Health Maintenance Care Teams Software Engineering Associate Manager Relationship Specialty Start Date End Date Bora German MD [address] [facility] [place] PCP - General Internal Medicine 07/29/21
--- OUTSIDE RECORDS SUMMARY | 2024-03-08 18:19 | XMS_ITS | Encounter Summary ---
Author Organization [facility] Address [address] [place] [address] Care Team Providers Care Medical Office Secretary Name Role Phone Bora Alcala MD Primary Care Provider [phone] Reason for Referral * Imaging (Routine) - Pending Review Specialty Diagnoses / Procedures Referred By Contac t Referred To Contact Radiology Diagnoses Transaminitis Procedures US Abdomen Limited Bora Alcala MD [address] [place] [address] Referral ID Status Reason Start Date Expiration Date V isits Requested Visits Authorized [id number] Pending Review 03/08/2024 03/08/2025 1 1 * Imaging (Routine) - Authorized Specialty Diagnoses / Procedures Referred By Contac t Referred To Contact Radiology Diagnoses Encounter for screening mammogram for malignant neoplasm of breast Procedures MG Mammo Digital Screening w Aristides bilat Bora Alcala MD [address] [place] [address] Referral ID Status Reason Start Date Expiration Date V isits Requested Visits Authorized [id number] Authorized 03/07/2024 03/07/2025 1 1 * Consultation (Routine) - Pending Review Specialty Diagnoses / Procedures Referred By Margarito banks Referred To Contact Sleep Medicine Diagnoses MARNI (obstructive sleep apnea) Bora Alcala MD [address] [place] [id number] Referral ID Status Reason Start Date Expiration Date Visits Requested Visits Authorized [id number] Pending Review Specialty Services Required 03/07/2024 03/07/2025 1 1 Reason for Visit * Reason Comments Follow-up Encounter Details Date Type Department Care Team ([facility] st Contact Info) Description 03/07/2024 10:30 AM EST Office Visit Adult [address] [phone] Bora Alcala MD [address] [place] [address] Asthma-COPD overlap syndrome (CMS/HCC) (Primary Dx); Cigarette smoker; MARNI (obstructive sleep apnea); Mixed hyperlipidemia; Prediabetes; Hyperparathyroidism (CMS/HCC); Osteoarthritis of both hands, unspecified osteoarthritis type; Transaminitis; Bipolar affective disorder, current episode depressed, current episode severity unspecified (CMS/HCC); Screening for deficiency anemia; Screening for colorectal cancer; Encounter for screening mammogram for malignant neoplasm of breast Social History Tobacco Use Types Packs/Day Years [...] file Not on file Not on file documented as of this encounter Last Filed Vital Signs Vital Sign Reading [...] Mass Index 39.01 03/07/2024 10:19 AM EST documented in this encounter Ordered Prescriptions Prescription Sig Dispensed Refills Start Date End Da te metFORMIN XR (GLUCOPHAGE-XR) 500 mg 24 hr tablet Take 1 tablet (500 mg total) by mouth 1 (one) time each day with breakfast. Do not crush, chew, or split. 90 each 1 03/08/2024 03/08/2025 fexofenadine (SIMRAN) 180 mg tablet Take 1 tablet (180 mg total) by mouth 1 (one) time each day. 90 tablet 1 03/07/2024 fluticasone furoate-vilanteroL (Breo Ellipta) 100-25 mcg/dose inhaler Inhale 1 puff by mouth 1 (one) time each day. 1 each 3 03/07/2024 03/07/2025 documented in this encounter Progress Notes * Bora Alcala MD - 03/07/2024 10:30 AM EST Patient is recommended to avoid sweets, sweet drinks, minimize refined carbs, eat small portions and do regular exercises What can I do to improve my cholesterol level? You can do a number of things to improve your cholesterol level. Eating healthy food can help loweryour LDL cholesterol level. You can lower your risk by quitting smoking if you smoke, losing weightif you're overweight and exercising. I have found the [place] [employer] Cookbook to be an excellent source of information at a very low cost. If you have access to the internet, a good website for information is the National Heart, Lung and Blood [place] at www.nhlbi.nih.gov. What sort of foods are healthy choices? Lowering your cholesterol level by eating healthy foods is easier than you might think. You don't have to give up your favorite foods. Just eat them less often. Also try sometimes substituting healthier choices. Tips for eating smart Limit saturated fats, like dairy fats (in ice cream and butter) and palm and coconut oil (in baked goods). Limit high-cholesterol foods, like egg yolks, organ meats (such as liver) and shellfish. Eat more fruits and vegetables. Eat more broiled or grilled fish and skinless chicken breasts. Choose lean cuts when you eat beef, pork and griffiths. Also eat smaller portions. Eat a variety of fiber-rich foods, like oats, dark breads and apples. Choose low-fat or nonfat dairy products. Avoid fried foods. Try these: Instead of these: Fish; poultry without the skin; lean beef, pork and griffiths Sausage, thompson, organ meats (like liver) Nonfat or low-fat milk Whole milk Sherbet, sorbet, fat-free ice cream Ice cream Egg whites Egg yolks Raw or steamed vegetables Buttered or fried vegetables Baked potatoes Croatian fries Clear soups Creamed soups Unsaturated vegetable oils: olive, corn, canola Saturated fats: butter, coconut oil, palm oil, lard, thompson fat Casey food cake, reduced-fat cheesecake Cheesecake Pretzels, air-popped popcorn, fat-free potato chips Potato chips, regular popcorn Pancakes or cereal with nonfat milk, bagels, Kosovan muffins Pastries, doughnuts What about medicine to lower cholesterol? Depending on your risk factors, if healthy eating and exercise don't work, we might want to recheckyour cholesterol level to see if medicine may be required. * Bora Alcala MD - 03/07/2024 10:30 AM ESTAddended by: BORA ALCALA on: 03/08/2024 05:00 PM Modules accepted: Orders * Bora Alcala MD - 03/07/2024 10:30 AM EST CHIEF COMPLAINT: Follow-up IDENTIFIER: Jeanne Infante is a 54 y.o. old female. HPI: 54-year-old female patient with past medical history of asthma-COPD, chronic cigarette smoker, transaminitis, treated for hep C, hyperlipidemia, prediabetes, osteoarthritis both hands, PTSD/bipolar disorder, who is seen here for med review follow-up exam. This patient was originally scheduled for physical exam but she has multiple complaints/issues to daily and today I will do the med review follow-up exam. Recently she was seen by the psychiatrist and her psych meds doses were reduced. She looks anxious. She has chronic smoker's cough and mild wheezing, I will start her on Breo Ellipta for maintenance therapy. She has seasonal allergies and I will order Simran. I counseled her for smoking cessation, she agreed to cut down the smoking from 1 pack to half pack but not ready to give up. She stopped drinking alcohol 2 years ago. Recently she was seen by the it intern for elevated PTH, repeat calcium level and vitamin D levels are within acceptable range. She complained of bilateral hand joint pains, she is having an appointment with direct marketing representative at [facility]. She reported that she received hep C treatment for 3 months. Her liver enzymes were elevated in thepast and I will repeat liver enzymes. She drinks energy drinks and I recommended her to stop drinking energy drinks. Health maintenance is reviewed. I will order mammogram. She follows with [employer]. She did not go forcolonoscopy and now Cologuard test first. Today she received flu shot. ROS: GENERAL: No malaise, significant weight loss or fever HEENT: No changes in hearing or vision, nose bleeds or other nasal problems NECK: No lumps RESPIRATORY: No cough, wheezing or shortness of breath CARDIOVASCULAR: No chest pain, or palpitations GI: No abdominal pain, hematochezia, melena : No dysuria, oliguria, polyuria, hematuria, flank pain MUSCULOSKELETAL: Joint pains SKIN: No lesions, rash or itching NEURO: No persistent headache, syncope, seizures, weakness or numbness PAST MEDICAL HISTORY: Patient Active Problem List Diagnosis Date Noted Transaminitis 03/07/2024 Hyperparathyroidism (CMS/HCC) 03/06/2024 Prediabetes 08/22/2023 MARNI (obstructive sleep apnea) 06/10/2023 Osteoarthritis of both hands 06/10/2023 Mixed hyperlipidemia 11/17/2021 Vitamin D deficiency 05/27/2020 Chronic hepatitis C ([facility] 10/17/2017 Bipolar affective disorder ([facility]) 07/14/2017 Post traumatic stress disorder (PTSD) 07/14/2017 Cholesteatoma 09/14/2012 Mixed hearing loss 09/14/2012 Tympanic membrane perforation 09/14/2012 PMDD (premenstrual dysphoric disorder) 01/07/2011 Asthma-COPD overlap syndrome ([facility]) 08/27/2009 Overdose of drug 11/14/2008 Asthma 06/20/2007 Opioid use disorder, severe, on maintenance therapy ([facility]) 03/31/2007 Bipolar affective disorder, current episode depressed ([facility]) 10/25/2005 Tobacco use disorder 10/25/2005 Past Surgical History: Procedure Laterality Date OTHER SURGICAL HISTORY PROCEDURE: HISTORICAL EAR SURGERY TUBAL LIGATION 2001 PROCEDURE: HISTORICAL TUBAL LIGATION SOCIAL HISTORY: Social History Tobacco Use Smoking status: Every Day Current packs/day: 0.50 Types: Cigarettes Smokeless tobacco: Never Substance Use Topics Alcohol use: Not Currently Alcohol/week: 2.0 standard drinks of alcohol FAMILY HISTORY: Family History Problem Relation Name Age of Onset Heart failure Mother HTN, HLD, DM, AFib, Emphysema Heart attack Father CAD, emphysema on O2 Colon cancer Maternal Grandfather Lung cancer, coronary artery disease; anxiety No Known Problems Son COPD Brother On oxygen, CHF, DM, HTN, HLD Other cancer Maternal Grandmother cervical No Known Problems Son Blindness Neg Hx Cataracts Neg Hx Glaucoma Neg Hx Macular degeneration Neg Hx Strabismus Neg Hx Breast cancer Neg Hx Ovarian cancer Neg Hx Prostate cancer Neg Hx Pancreatic cancer Neg Hx Uterine cancer Neg Hx Family Status Relation Name Status Mother Father MGF Son Alive Brother Alive MGM Son Alive Neg Hx (Not Specified) No partnership data on file MEDICATIONS DISCONTINUED/REORDERED: Medications Discontinued During This Encounter Medication Reason amphetamine-dextroamphetamine (ADDERALL) 20 mg tablet cholecalciferol (VITAMIN D-3) 50 mcg (2,000 unit) tablet lamoTRIgine (LaMICtal) 150 mg tablet venlafaxine XR (EFFEXOR-XR) 150 mg 24 hr capsule fexofenadine (SIMRAN) 180 mg tablet Reorder ACTIVE MEDICATIONS: Outpatient Medications Marked as Taking for the 03/07/24 encounter (Office Visit) with Bora Alcala MD Medication Sig Dispense Refill albuterol HFA (PROAIR HFA ; PROVENTIL HFA ; VENTOLIN HFA) 90 mcg/actuation inhaler INHALE TWO PUFFSBY MOUTH EVERY 4 HOURS NEEDED FOR COUGH/WHEEZING (BULK) 8.5 g 0 amphetamine-dextroamphetamine (ADDERALL) 30 mg tablet Take 1 tablet (30 mg total) by mouth 1 (one) time each day. Max Daily Amount: 30 mg b complex vitamins capsule TAKE ONE CAPSULE BY MOUTH EVERY DAY ^1R1 30 capsule 0 bisacodyL (DULCOLAX) 5 mg EC tablet Take 2 tabs by mouth right before beginning bowel prep. Follow instructions given by office for timing. blood sugar diagnostic (FreeStyle Lite Strips) test strip USE TO TEST BLOOD SUGAR ONCE DAILY blood-glucose meter (FREESTYLE LITE METER MISC) USE TO TEST BLOOD SUGAR ONCE DAILY CertaVite Senior tablet TAKE ONE TABLET BY MOUTH EVERY DAY ^1R1 28 tablet 5 cholecalciferol (VITAMIN D-3) 25 mcg (1,000 unit) tablet TAKE ONE TABLET BY MOUTH EVERY DAY ^1R1 30tablet 0 clonazePAM (KlonoPIN) 1 mg tablet Take 1 mg by mouth 2 times daily as needed. diclofenac (VOLTAREN) 1 % topical gel APPLY TO AFFECTED AREA(S) TWO TIMES A DAY NEEDED FOR PAIN (BULK) fexofenadine (SIMRAN) 180 mg tablet Take 1 tablet (180 mg total) by mouth 1 (one) time each day. 90 tablet 1 fluticasone propionate (FLONASE) 50 mcg/actuation nasal spray USE 1 SPRAY IN EACH NOSTRIL ONCE DAILY NEEDED (BULK) 16 g 0 folic acid (FOLVITE) 1 mg tablet TAKE ONE TABLET BY MOUTH EVERY DAY ^1R1 30 tablet 0 FREESTYLE LANCETS MISC USE TO TEST BLOOD SUGAR ONCE DAILY lamoTRIgine (LaMICtal XR) 200 mg tablet extended release 24hr 24 hr tablet Take 1 tablet (200 mg total) by mouth 1 (one) time each day. polyethylene glycol (GoLYTELY) 236-22.74-6.74 -5.86 gram solution Take 240 mL by mouth once for 1 dose. Take 4L by mouth once for one dose. May substitue any PEG. Starting at 6PM the night before your procedure drink 1 8oz glasses at your own pace until rectals run clear. venlafaxine XR (EFFEXOR-XR) 75 mg 24 hr capsule Take 1 capsule (75 mg total) by mouth 1 (one) time each day. Do not crush or chew. [DISCONTINUED] fexofenadine (SIMRAN) 180 mg tablet Take 1 tablet (180 mg total) by mouth 1 (one) time each day. ALLERGIES: Allergies Allergen Reactions Cat Dander Dog Dander Other PHYSICAL EXAM: Visit Vitals BP 126/88 Pulse 96 Temp 36.2 ??C (97.1 ??F) (Temporal) Resp 20 Ht 1.422 m (56 ) Wt 78.9 kg (174 lb) BMI 39.01 kg/m?? OB Status Tubal Ligation Smoking Status Every Day BSA 1.67 m?? Physical Exam APPEARANCE: Alert and in no acute distress EYES: PERRLA, conjunctiva and sclera normal. EARS: External ears normal. NOSE/SINUS: Nares normal. MOUTH/THROAT: no erythema or exudates HEART: RRR with normal S1 and S2, no murmurs LUNG: clear to auscultation, no wheezing ABDOMEN: Bowel sounds normoactive, soft, non-tender and no palpable masses. BACK: No pain to palpation EXTREMITIES: No edema NEURO: Awake, alert and oriented x 3. No focal neurological deficits SKIN: No rashes LABS: @CBC@ Lab Results Component Value Date CALCIUM 9.9 03/06/2024 ALBUMIN 4.1 03/06/2024 Lab Results Component Value Date HGBA1C 6.1 02/01/2023 No results found for: TSH Lab Results Component Value Date CHOL 280 (A) 02/01/2023 TRIG 401 (A) 02/01/2023 HDL 46 02/01/2023 LDL 154 (A) 02/01/2023 IMAGING: Ultrasound abdomen-fatty liver IMPRESSION: 1. Asthma-COPD overlap syndrome (CMS/HCC) 2. Cigarette smoker 3. MARNI (obstructive sleep apnea) 4. Mixed hyperlipidemia 5. Prediabetes 6. Hyperparathyroidism (CMS/HCC) 7. Osteoarthritis of both hands, unspecified osteoarthritis type 8. Transaminitis 9. Bipolar affective disorder, current episode depressed, current episode severity unspecified (CMS/HCC) 10. Screening for deficiency anemia 11. Screening for colorectal cancer 12. Encounter for screening mammogram for malignant neoplasm of breast PLAN: 1. Poorly controlled asthma-COPD. She is mildly wheezing. I will start her on Breo Ellipta 1 puff daily and continue albuterol MDI 2 puff Q4 hourly as needed. 2. During this visit, I also counseled Jeanne Infante concerning smoking cessation. I spent 5 minutesdiscussing tobacco use and strategies to quit smoking. After this discussion, the patient has decided that they are not ready to quit smoking at this time and would like to try the following smoking c essation technique(s) she agreed to cut down the smoking from 1 pack to half pack a day. . 3. She has history of MARNI in the past, I could not retrieve the sleep study. She has history of snoring and I will order sleep study. 4. Last LDL level was 154. I had a lengthy conversation about low-fat diet and recommended her to do regular exercises. Repeat lipid profile. If liver enzymes are high then we may not able to start statin therapy. 5. Last A1c level was 6.1. Patient is counseled for low-carb diet and recommended her to eat small portions and avoid energy drinks. 6. She is having an appointment with zoo caretaker at [facility] for bilateral hand joint arthritis. 7. She was treated for hep C in the past. She stopped drinking alcohol 2 years ago. Repeat LFTs. 8. She follows with a psychiatrist for bipolar disorder 9. Labs ordered including A1c, CBC, CMP, TSH, lipid panel, urine microalbumin level 10. Follow-up exam in 4 months All questions and concerns were addressed. Jeanne Infante verbalizes understanding and agrees with this treatment plan. Patient was reminded to call or return to the office if any new or existing problems arise. Orders Placed This Encounter Procedures MG Mammo Digital Screening w Aristides bilat Influenza trivalent, MDCK, 0.5mL, preservative free (Flucelvax) 6mo and older Hemoglobin A1c CBC and differential Comprehensive metabolic panel Thyroid stimulating hormone with reflex to free t4 and free t3 Lipid panel with reflex to direct LDL Microalbumin creatinine urine ratio Cologuard?? colon cancer screening Ambulatory referral to Sleep Medicine INFLUENZA TRIVALENT, MDCK, 0.5ML, PRESERVATIVE FREE (FLUCELVAX) 6MO AND OLDER AMB REFERRAL TO SLEEP MEDICINE MG MAMMO DIGITAL SCREENING W ARISTIDES BILAT Bora Alcala MD on 03/07/2024 at 11:12 AM EST Today's documentation was made using voice recognition software.This note may contain grammatical errors secondary to this software. documented in this encounter Plan of Treatment Upcoming Encounters Date Type Department Care Team (Late st Contact Info) Description 04/04/2024 2:45 PM EST Appointment Bone Density - [address] [phone] 07/04/2024 11:00 AM EDT Office Visit Adult Medicine [place] - [address] [phone] Lexus Ho PA [address] [place] [address] 08/24/2024 4:10 PM EDT Appointment Radiology Department - [address] [phone] Scheduled Orders Name Type Priority Associated Diagnoses Orde r Schedule Cologuard?? colon cancer screening Lab Routine Screening for colorectal cancer 1 Occurrences starting 03/07/2024 until 03/07/2025 MG Mammo Digital Screening w Aristides bilat Imaging Routine Encounter for screening mammogram for malignant neoplasm of breast 1 Occurrences starting 03/07/2024 until 03/07/2025 US Abdomen Limited Imaging Routine Transaminitis Expected: 03/15/2024 (Approximate), Expires: 03/08/2025 Scheduled Referrals Name Type Priority Associated Diagnoses Order Schedule Ambulatory referral to Sleep Medicine Outpatient Referral Routine MARNI (obstructive sleep apnea) 1 Occurrences starting 03/07/2024 until 03/07/2025 documented as of this encounter Results * Microalbumin creatinine urine ratio (03/08/2024 10:02 AM EST) Creatinine, Urine 139.0 mg/dL LAB CHEMISTRY METHOD 03/08/2024 1:26 PM EST [facility] Microalb, Ur 14.6 0.0 - 29.0 mg/L LAB CHEMISTRY METHOD 03/08/2024 1:26 PM [facility] Microalb/Creat Ratio 11 <30 mg/g creat LAB CHEMISTRY METHOD 03/08/2024 1:26 PM [facility] Urine Urine specimen obtained by clean catch procedure / Unknown Non-blood Collection / Unknown 03/08/2024 10:02 AM EST 03/08/2024 10:02 AM EST Bora Alcala MD LAB URINE ORDERABLE S [facility] [address] [place] [address], [place] [phone] * (ABNORMAL) Lipid panel with reflex to direct LDL (03/08/2024 10:02 AM EST) Cholesterol 241(H) 0 - 200 mg/dL LAB CHEMISTRY METHOD 03/08/2024 12:34 PM [facility] Triglycerides 219(H) 0 - 150 mg/dL LAB CHEMISTRY METHOD 03/08/2024 12:34 PM [facility] HDL 45 >=40 mg/dL LAB CHEMISTRY METHOD 03/08/2024 12:34 PM [facility] LDL Calculated 152(H) 0 - 100 mg/dL LAB CHEMISTRY METHOD 03/08/2024 12:34 PM [facility] VLDL Cholesterol Mika 43.8 mg/dL LAB CHEMISTRY METHOD 03/08/2024 12:34 PM [facility] Non HDL Chol. (LDL+VLDL) 196(H) <145 mg/dL LAB CHEMISTRY METHOD 03/08/2024 12:34 PM [facility] Chol/HDL Ratio 5.4(H) 0.0 - 4.4 LAB CHEMISTRY METHOD 03/08/2024 12:34 PM [facility] Blood Venous blood specimen / Unknown Venipuncture / Unknown 03/08/2024 10:02 AM EST 03/08/2024 10:02 AM EST Bora Alcala MD LAB BLOOD ORDERABLE S Performing Organization Address [facility]/ZIP Co de Phone Number [facility] [address] [place] [address], * Thyroid stimulating hormone with reflex to free t4 and free t3 (03/08/2024 10:02 AM EST) TSH 0.84 0.40 - 4.00 mcIU/mL LAB CHEMISTRY METHOD 03/08/2024 12:37 PM [facility] Blood Venous blood specimen / Unknown Venipuncture / Unknown 03/08/2024 10:02 AM EST 03/08/2024 10:02 AM EST Bora Alcala MD LAB BLOOD ORDERABLE S Performing Organization Address City/[facility]/ZIP Co de Phone Number [facility] [address] [place] [address], [place] [phone] * (ABNORMAL) Comprehensive metabolic panel (03/08/2024 10:02 AM EST) Sodium 136 133 - 145 mmol/L LAB CHEMISTRY METHOD 03/08/2024 12:34 PM [facility] Potassium 4.0 3.5 - 5.5 mmol/L LAB CHEMISTRY METHOD 03/08/2024 12:34 PM [facility] Chloride 104 96 - 110 mmol/L LAB CHEMISTRY METHOD 03/08/2024 12:34 PM [facility] CO2 27 21 - 32 mmol/L LAB CHEMISTRY METHOD 03/08/2024 12:34 PM [facility] Anion Gap 5 3 - 11 LAB CHEMISTRY METHOD 03/08/2024 12:34 PM [facility] Glucose 134(H) 70 - 100 mg/dL LAB CHEMISTRY METHOD 03/08/2024 12:34 PM [facility] BUN 9 5 - 25 mg/dL LAB CHEMISTRY METHOD 03/08/2024 12:34 PM [facility] Creatinine 0.88 0.50 - 1.10 mg/dL LAB CHEMISTRY METHOD 03/08/2024 12:34 PM [facility] eGFR 79 >=60 mL/min/1. 73m2 LAB CHEMISTRY METHOD 03/08/2024 12:34 PM [facility] Comment:Calculation based on the??Chronic Kidney Disease Epidemiology Collaboration (CKD-EPI) equation refit??without adjustment for race. BUN/Creatinine Ratio 10.2 LAB CHEMISTRY METHOD 03/08/2024 12:34 PM [facility] Calcium 9.4 8.5 - 10.5 mg/dL LAB CHEMISTRY METHOD 03/08/2024 12:34 PM [facility] AST (SGOT) 14 10 - 42 unit/L LAB CHEMISTRY METHOD 03/08/2024 12:34 PM [facility] ALT (SGPT) 36 10 - 60 unit/L LAB CHEMISTRY METHOD 03/08/2024 12:34 PM [facility] Alkaline Phosphatase 177(H) 42 - 121 unit/L LAB CHEMISTRY METHOD 03/08/2024 12:34 PM [facility] Total Protein 7.1 6.0 - 8.0 g/dL LAB CHEMISTRY METHOD 03/08/2024 12:34 PM [facility] Albumin 3.9 3.2 - 5.0 g/dL LAB CHEMISTRY METHOD 03/08/2024 12:34 PM [facility] Total Bilirubin 0.3 0.0 - 1.4 mg/dL LAB CHEMISTRY METHOD 03/08/2024 12:34 PM [facility] Blood Venous blood specimen / Unknown Venipuncture / Unknown 03/08/2024 10:02 AM EST 03/08/2024 10:02 AM EST Bora Alcala MD LAB BLOOD ORDERABLE S Performing Organization Address City/[facility]/ZIP Co de Phone Number [facility] [address] [place] [address], [place] [phone] * Hemoglobin A1c (03/08/2024 10:02 AM EST) Hemoglobin A1C 6.3 <6.5 % LAB CHEMISTRY METHOD 03/08/2024 2:22 PM EST [facility] Mean Bld Glu Estim. 134 mg/dL LAB CHEMISTRY METHOD 03/08/2024 2:22 PM EST [facility] Blood Venous blood specimen / Unknown Venipuncture / Unknown 03/08/2024 10:02 AM EST 03/08/2024 10:02 AM EST Bora Alcala MD LAB BLOOD ORDERABLE S Performing Organization Address [facility] Co de Phone Number [facility] [address] [place] [address], documented in this encounter Visit Diagnoses Diagnosis Asthma-COPD overlap syndrome (CMS/HCC)- Primary Cigarette smoker Tobacco use disorder MARNI (obstructive sleep apnea) Obstructive sleep apnea (adult) (pediatric) Mixed hyperlipidemia Prediabetes Other abnormal glucose Hyperparathyroidism (CMS/HCC) Hyperparathyroidism, unspecified Osteoarthritis of both hands, unspecified osteoarthritis type Transaminitis Nonspecific elevation of levels of transaminase or lactic acid dehydrogenase (LDH) Bipolar affective disorder, current episode depressed, current episode severity unspecified (CMS/HCC) Screening for deficiency anemia Screening for other and unspecified deficiency anemia Screening for colorectal cancer Encounter for screening mammogram for malignant neoplasm of breast documented in this encounter Discontinued Medications Medication Sig Discontinue Reason Start Date End Da te amphetamine-dextroamphet amine (ADDERALL) 20 mg tablet 09/09/2021 03/07/2024 cholecalciferol (VITAMIN D-3) 50 mcg (2,000 unit) tablet Take 1 tablet (2,000 Units total) by mouth 1 (one) time each day. 08/09/2023 03/07/2024 lamoTRIgine (LaMICtal) 150 mg tablet Take 1 Tablet by mouth 2 times daily. Takes 300 mg daily 03/07/2024 venlafaxine XR (EFFEXOR-XR) 150 mg 24 hr capsule Take 300 mg by mouth daily. 03/07/2024 fexofenadine (SIMRAN) 180 mg tablet Take 1 tablet (180 mg total) by mouth 1 (one) time each day. Reorder 05/10/2023 03/07/2024 documented as of this encounter Historical Medications * This list may reflect changes made after this encounter. Medication Sig Dispensed Refills Start Date End Date venlafaxine XR (EFFEXOR-XR) 75 mg 24 hr capsule Take 1 capsule (75 mg total) by mouth 1 (one) time each day. Do not crush or chew. lamoTRIgine (LaMICtal XR) 200 mg tablet extended release 24hr 24 hr tablet Take 1 tablet (200 mg total) by mouth 1 (one) time each day. amphetamine-dextroampheta mine (ADDERALL) 30 mg tablet Take 1 tablet (30 mg total) by mouth 1 (one) time each day. Max Daily Amount: 30 mg added in this encounter Orders Immunization/Injection Count Last Ordered Date First Ordered Date INFLUENZA TRIVALENT, MDCK, 0 .5ML, PRESERVATIVE FREE (FLUCELVAX) 6MO AND OLDER 1 03/07/2024 documented in this encounter Care Teams Medical Office Secretary Relationship Specialty Start Date End Date Bora Alcala MD [address] [place] [address] PCP - General Internal Medicine 07/29/21 documented as of this encounter
== END 2024-03-08 15:10 | disposition home or self-care (01) ==
PROVIDERS: PCP Internal Medicine; Visit Provider Student in an Organized Health Care Education/Training Program
DX: M15.4 Erosive (osteo)arthritis (principal)
CPT/HCPCS: 99213; G2211

== ENCOUNTER → 2024-03-08 14:22 | Outpatient (BNVA) | payer OTHER, SELFPAY | PROVIDERS: PCP Internal Medicine; Visit Provider Student in an Organized Health Care Education/Training Program | DX: M15.4 Erosive (osteo)arthritis (principal); M25.561 Pain in right knee; M25.562 Pain in left knee | CPT/HCPCS: 99212 ==